=== PATIENT | female | born 1980 | race Caucasian/White ===

== ENCOUNTER 2021-08-27 15:05 | Emergency (ER) | payer OTHER, SELFPAY ==
[2021-08-27] MEDS ORDERED: TETRACAINE HCL 0.5% 4ML OPTH ONE (15:41)
[2021-08-27] MEDS ORDERED: FLUORESCEIN SODIUM 1 MG/WRAP ONE (15:41)
[2021-08-27] MEDS ORDERED: LIDOCAINE JELLY 2%- 5 ML TUBE ONE (15:43)
--- NOTE | 2021-08-27 16:23 | RAD REPORT ---
EXAM DESCRIPTION: CT - Facial Bones W/ Mpr - 08/27/2021 4:11 pm CLINICAL HISTORY: Facial injury status post fall with facial pain COMPARISON: None TECHNIQUE: Computed axial tomography of the face was obtained. Coronal and sagittal reconstruction w as performed. All CT scans are performed using dose optimization technique as appropriate and may include automated exposure control or mA/KV adjustment according to patient size. FINDINGS: A fracture is not seen. A TMJ dislocation is not noted. The globes are intact. Mild chronic sinusitis. IMPRESSION: Negative for a facial fracture.
--- NOTE | 2021-08-27 17:04 | EDPHYS ---
Physician Documentation [facility] Name: Katherin Chin Age: 41 yrs Sex: Female : 1980 Arrival Date: 08/27/2021 Time: 15:07 Bed 15 Private MD: ED Physician Harris Manjarrez HPI: 08/27 15:35 This 41 yrs old Female presents to ER via Ambulatory with complaints of Eye Injury - cp Laceration. 15:35 The patient sustained contusion, to the left eye, caused by direct blow. Onset: The cp symptoms/episode began/occurred today. 15:35 Associated signs and symptoms: Pertinent negatives: dizziness, headache, LOC. cp 15:35 Patient does not utilize any form of vision correction. cp 15:35 Patient reports slip and fall in bathroom causing her to strike left eye against cp counter top. No LOC, no vomiting. 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 - Social history:: Smoking status: Patient reports the use of cigarette tobacco products, smokes one-half pack cigarettes per day. ROS: 15:40 Eyes: Positive for pain, redness, swelling, of the left eye. cp 15:40 Constitutional: Negative for body aches, chills, fever. cp 15:40 Neck: Negative for injury or acute deformity, pain with movement, pain at rest, stiffness. 15:40 Cardiovascular: Negative for chest pain. 15:40 Respiratory: Negative for cough, shortness of breath. 15:40 Abdomen/GI: Negative for vomiting, diarrhea, constipation. 15:40 Neuro: Negative for dizziness, headache, loss of consciousness, numbness, seizure activity, syncope, weakness. 15:40 All other systems are negative. Exam: 15:45 Constitutional: The patient appears in no acute distress, alert, awake, well developed, cp well nourished. 15:45 Head/face: Noted is ecchymosis, that is mild, swelling, that is mild, of the left cp upper and left lower eyelids, tenderness, that is mild, Sinus tenderness, that is mild, is located over the left frontal sinus and left maxillary sinus. 15:45 Eyes: Pupils: equal, round, and reactive to light and accomodation, Extraocular movements: intact throughout, Conjunctiva: contusion noted to medial aspect left conjunctiva. Corneas: abrasion, is not appreciated, foreign body, is not appreciated, a fluorescein strip employed to appreciate the findings, Anterior chamber: normal, no hyphema, Lids and lashes: laceration, that is superficial, of the medial aspect left upper eyelid, Visual calle: are intact, Examination of the other eye reveals no obvious gross abnormality. 15:45 ENT: External ear(s): are unremarkable, Nose: is normal, Mouth: Lips: moist, Oral mucosa: pink and intact, moist, Posterior pharynx: Airway: no evidence of obstruction, patent. 15:45 Neck: C-spine: vertebral tenderness, is not appreciated, crepitus, is not appreciated, ROM/movement: is normal, is supple, without pain, no range of motions limitations, no nuchal rigidity. 15:45 Chest/axilla: Inspection: normal. 15:45 Cardiovascular: Rate: tachycardic, Rhythm: regular. 15:45 Respiratory: the patient does not display signs of respiratory distress, Respirations: normal, no use of accessory muscles, no retractions, labored breathing, is not present. 15:45 Abdomen/GI: Exam negative for discomfort, distension, guarding, Inspection: abdomen appears normal. 15:45 Neuro: Orientation: to person, place \T\ time. Mentation: is normal, Motor: moves all fours, strength is normal, Sensation: is normal. Vital Signs: 15:14 BP 159 / 86; Pulse 106; Resp 18; Pulse Ox 99% on R/A; Weight 56.7 kg (R); Height 5 ft. aj1 2 in. (157.48 cm) (R); Pain 8/10; 15:14 Body Mass Index 22.86 (56.70 kg, 157.48 cm) aj1 Visual Acuity: 16:33 Left Eye Visual acuity 20/25, ; Right Eye Visual acuity 20/25, ; Both Eyes Visual mh5 acuity 20/25; Without Lenses; Laceration: 17:05 Wound Repair of 1cm ( 0.4in ) partial thickness laceration to ineer aspect left upper cp eyelid. Linear shaped.. Distal neuro/vascular/tendon intact. Anesthesia: Topical anesthetic administered with 2% viscous lidocaine. Wound prep: Simple cleansing by me. Skin closed with 2 6-0 Vicryl using interrupted sutures and sterile technique. Dressed with Bacitracin. Patient tolerated well. MDM: 15:28 Patient medically screened. cp 16:00 Differential diagnosis: Corneal abrasion of left eye. orbital fracture, laceration, cp globe rupture. 17:02 Data reviewed: vital signs, nurses notes, radiologic studies, CT scan, and as a result, cp I will discharge patient. 17:03 Counseling: I had a detailed discussion with the patient and/or guardian regarding: the cp historical points, exam findings, and any diagnostic results supporting the discharge/admit diagnosis, radiology results, the need for outpatient follow up, an opthalmologist, to return to the emergency department if symptoms worsen or persist or if there are any questions or concerns that arise at home. 17:03 Response to treatment: the patient's symptoms have markedly improved after treatment, cp and as a result, I will discharge patient. 08/27 15:27 Order name: CT Facial Bones W/O Con; Complete Time: 16:24 cp 08/27 16:24 Interpretation: Report reviewed. 08/27 15:33 Order name: Eye Tray; Complete Time: 15:48 08/27 15:33 Order name: Fluoresene Opth strip; Complete Time: 15:48 08/27 16:22 Order name: Visual Acuity; Complete Time: 16:46 cp Administered Medications: 15:48 Drug: Lidocaine Gel 2 % 1 ea Volume: 15 ml; Route: Mucous Membrane; aj1 17:29 Follow up: Response: No adverse reaction aj1 16:46 Drug: Tetracaine Drops 0.5 % 1 drops Route: Ophthalmic; Site: right eye; aj1 17:29 Follow up: Response: No adverse reaction aj1 17:29 Drug: ERYTHromycin Ointment 1 application Route: Ophthalmic; Site: right eye; aj1 17:29 Follow up: Response: No adverse reaction aj1 Disposition: 17:15 Chart complete. cp Disposition Summary: 08/27/21 17:03 Discharge Ordered Location: Home cp Problem: new cp Symptoms: have improved cp Condition: Stable cp Diagnosis - Laceration without foreign body of left eyelid and periocular area cp - Injury of conjunctiva and corneal abrasion without foreign body, left eye, initial cp encounter Followup: cp - With: Lanny Segal MD - When: 2 - 3 days - Reason: Wound Recheck Discharge Instructions: - Discharge Summary Sheet cp - Corneal Abrasion cp - Facial Laceration cp Forms: - Medication Reconciliation Form cp - Thank You Letter cp - Antibiotic Education cp - Prescription Opioid Use cp Prescriptions: - Cephalexin 500 mg Oral Capsule - take 1 capsule by ORAL route every 8 hours for 10 days; 30 capsule; Refills: 0, cp Product Selection Permitted - Ibuprofen 800 mg Oral Tablet - take 1 tablet by ORAL route every 8 hours As needed take with food; 30 tablet; cp Refills: 0, Product Selection Permitted - Tobrex 0.3 % Ophthalmic ointment - apply 0.5 inch ribbon by OPHTHALMIC route 2-3 times daily for 7 days; 1 tube; cp Refills: 0, Product Selection Permitted Signatures: Dispatcher [employer] Madina Walton RN RN aj1 Gulshan Drew PA PA cp
--- NOTE | 2021-08-27 17:04 | ER ---
Nurse's Notes [facility] Name: Katherin Chin Age: 41 yrs Sex: Female : 1980 Arrival Date: 08/27/2021 Time: 15:07 Bed 15 Private MD: Diagnosis: Laceration without foreign body of left eyelid and periocular area;Injury of conjunctiva and corneal abrasion without foreign body, left eye, initial encounter Presentation: 08/27 15:14 Chief complaint: Patient states: She slipped in her bathroom and hit her right eye on aj1 the counter. Laceration noted to right eyelid. Bruising noted to right eyelid. Coronavirus screen: Vaccine status: Patient reports receiving the 2nd dose of the covid vaccine. Ebola Screen: Patient denies travel to an Ebola-affected area in the 21 days before illness onset. Mechanism of Injury: Fall from standing position. Initial Sepsis Screen: Does the patient meet any 2 criteria? No. Patient's initial sepsis screen is negative. Does the patient have a suspected source of infection? No. Patient's initial sepsis screen is negative. Risk Assessment: Do you want to hurt yourself or someone else? Patient reports no desire to harm self or others. Onset of symptoms was August 27, 2021. 15:14 Method Of Arrival: Ambulatory aj1 15:14 Acuity: ELIDA 4 aj1 17:32 The patient denies any loss of vision. aj1 Triage Assessment: 15:16 General: Appears in no apparent distress. uncomfortable, Behavior is calm, cooperative, aj1 appropriate for age. Pain: Complains of pain in right eye. EENT: Sclera/Cornea are reddened in inner aspect of conjunctiva of left eye. Neuro: Level of Consciousness is awake, alert, obeys commands, Oriented to person, place, time, situation. Cardiovascular: Patient's skin is warm and dry. Respiratory: Airway is patent Respiratory effort is even, unlabored, Respiratory pattern is regular, symmetrical. 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 - Social history:: Smoking status: Patient reports the use of cigarette tobacco products, smokes one-half pack cigarettes per day. Screenin:30 Abuse screen: Denies threats or abuse. Denies injuries from another. Nutritional aj1 screening: No deficits noted. Tuberculosis screening: No symptoms or risk factors identified. Fall Risk None identified. Assessment: 15:30 General: Appears in no apparent distress. uncomfortable, Behavior is calm, cooperative, aj1 appropriate for age. Pain: Complains of pain in right eye. Neuro: Level of Consciousness is awake, alert, obeys commands, Oriented to person, place, time, situation. Cardiovascular: Patient's skin is warm and dry. Respiratory: Airway is patent Respiratory effort is even, unlabored, Respiratory pattern is regular, symmetrical. GI: No signs and/or symptoms were reported involving the gastrointestinal system. : No signs and/or symptoms were reported regarding the genitourinary system. EENT: Eyes Laceration noted to right upper eyelid, bruising noted to right upper eye lid, redness noted to sclera. 16:30 Reassessment: Patient appears in no apparent distress at this time. No changes from aj1 previously documented assessment. Patient and/or family updated on plan of care and expected duration. Pain level reassessed. Patient is alert, oriented x 3, equal unlabored respirations, skin warm/dry/pink. 17:32 Reassessment: Patient appears in no apparent distress at this time. No changes from aj1 previously documented assessment. Patient and/or family updated on plan of care and expected duration. Pain level reassessed. Patient is alert, oriented x 3, equal unlabored respirations, skin warm/dry/pink. Vital Signs: 15:14 BP 159 / 86; Pulse 106; Resp 18; Pulse Ox 99% on R/A; Weight 56.7 kg (R); Height 5 ft. aj1 2 in. (157.48 cm) (R); Pain 8/10; 15:14 Body Mass Index 22.86 (56.70 kg, 157.48 cm) aj1 Visual Acuity: 16:33 Left Eye Visual acuity 20/25, ; Right Eye Visual acuity 20/25, ; Both Eyes Visual mh5 acuity 20/25; Without Lenses; ED Course: 15:07 Patient arrived in ED. ds1 15:14 Chad, Madina, RN is Primary Nurse. aj1 15:16 Triage completed. aj1 15:16 Arm band placed on Patient placed in an exam room. aj1 15:21 Gulshan Drew PA is PHCP. cp 15:21 Harris Manjarrez MD is Attending Physician. cp 15:30 Patient has correct armband on for positive identification. aj1 15:30 No provider procedures requiring assistance completed. aj1 16:11 CT Facial Bones W/O Con In Process Unspecified. EDMA 17:01 Lanny Segal MD is Referral Physician. cp 17:32 Patient did not have IV access during this emergency room visit. aj1 Administered Medications: 15:48 Drug: Lidocaine Gel 2 % 1 ea Volume: 15 ml; Route: Mucous Membrane; aj1 17:29 Follow up: Response: No adverse reaction aj1 16:46 Drug: Tetracaine Drops 0.5 % 1 drops Route: Ophthalmic; Site: right eye; aj1 17:29 Follow up: Response: No adverse reaction aj1 17:29 Drug: ERYTHromycin Ointment 1 application Route: Ophthalmic; Site: right eye; aj1 17:29 Follow up: Response: No adverse reaction aj1 Outcome: 17:03 Discharge ordered by MD. cp 17:32 Discharged to home ambulatory. aj1 17:32 Condition: good 17:32 Discharge instructions given to patient, Instructed on discharge instructions, follow up and referral plans. medication usage, Demonstrated understanding of instructions, follow-up care, medications, Prescriptions given X 3. 17:32 Patient left the ED. aj1 Signatures: Dispatcher [employer] [facility] Madina Bonilla RN RN aj1 Nicki Alexander [facility] Gulshan Drew PA PA Ella Ngo 5
[2021-08-27] MEDS ORDERED: TOBRAMYCIN SULF 0.3% OPTH OINT ONE (17:06)
[2021-08-27 17:37] VITALS: BP 159/86; O2SAT 99
== END 2021-08-27 17:32 | disposition home or self-care (01) ==
LOC: ER 15:05
PROC: 08QPXZZ Repair Left Upper Eyelid, External Approach (ICD-10-PCS; principal; 2021-08-27)
DX: S01.112A Laceration without foreign body of left eyelid and periocular area, initial encounter (principal); S05.02XA Injury of conjunctiva and corneal abrasion without foreign body, left eye, initial encounter; W01.198A Fall on same level from slipping, tripping and stumbling with subsequent striking against other object, initial encounter; F17.210 Nicotine dependence, cigarettes, uncomplicated
CPT/HCPCS: 70486; 76377; 99283

== ENCOUNTER 2022-12-16 22:34 | Inpatient (IN) | payer SELFPAY ==
[2022-12-16] MEDS ORDERED: LORazepam 2 MG/ML VIAL ONE (23:16)
[2022-12-16] MEDS ORDERED: ONDANSETRON 4 MG/2 ML VIAL ONE (23:16)
[2022-12-16] MEDS ORDERED: NALOXONE HCL 2 MG/2 ML VIAL ONE (23:16)
[2022-12-16] MEDS ORDERED: WATER FOR INJ,STERILE 10 ML ONE (23:17)
[2022-12-16] MEDS ORDERED: ZIPRASIDONE MESYLA 20 MG/VIAL IM ONE (23:17)
[2022-12-16] MEDS ORDERED: KETAMINE HCL 500 MG/5 ML VIAL ONE (23:30)
[2022-12-16 23:35] LABS: Absolute Lymphocytes (CBC) 2.7 K/uL (0.7-4.9); Hematocrit 43.9 % (36.0-45.0); Lymphocytes % 19.4 % (15.3-44.8); MCV 88.4 fL (80-100); MPV 9.1 fL (7.6-11.3); RBC Red Blood Cell Count 4.97 M/uL (3.86-4.86)
[2022-12-16] MEDS ORDERED: ETOMIDATE 20 MG/10 ML VIAL IV ONE ×2 (23:37→23:42)
[2022-12-16] MEDS ORDERED: ROCURONIUM 50 MG/5 ML VIAL IV ONE (23:38)
[2022-12-16 23:40] LABS: Protime INR 0.98
[2022-12-16] MEDS ORDERED: propofoL 1,000 MG/100 ML VIAL IV ONE (23:55)
--- NOTE | 2022-12-17 00:11 | EDPHYS ---
Physician Documentation [facility] Name: Katherin Chin Age: 42 yrs Sex: Female : 1980 Arrival Date: 12/16/2022 Time: 22:35 Bed 2 Private MD: ED Physician Sincere Dean HPI: 12/16 22:49 This 42 yrs old Female presents to ER via Wheelchair with complaints of sp4 Breathing Difficulty. 22:49 42-year-old female who has history of drug abuse and opiate addiction sp4 presents with acute overdose of fentanyl. Patient states she took [address] street fentanyl pills within the past hour and has had loss of consciousness at home and was administered Narcan by her boyfriend's mother which has helped. On arrival patient also reported that she has used crack cocaine concurrently with fentanyl pills. Patient states that she also obtains Suboxone on the streets for her opiate addiction. Patient reports that she has nausea and is feeling unwell. On examination patient has episodes of agitation, she periodically screams, exhibits poor cooperation with exam, and has some anxiety and signs of opiate withdrawal such as yawning and persistent movement. HPI is limited secondary to patient's condition.. Historical: - Allergies: 22:46 No Known Allergies; kl - Home Meds: 22:46 None [Active]; kl - PMHx: 22:46 None; kl - PSHx: 22:46 None; kl - Immunization history:: Unknown vaccination history. - Social history:: Patient uses street drugs, cocaine. - Family history:: not pertinent. ROS: 23:55 Unable to obtain ROS due to Patient in severe opiate withdrawals and is not able to sp4 cooperate for review of systems. 12/17 00:10 Constitutional: Full ROS is not available secondary to agitation and withdrawal also sp4 acute confusion Exam: 12/16 23:55 Constitutional: This is a well developed, well nourished patient who is awake, patient sp4 has moderate to severe agitation, persistent movement, diaphoresis, and excess salivation consistent with acute opiate withdrawal, moderate to severe distress Head/Face: Normocephalic, atraumatic. Eyes: Pupils equal round and reactive to light, extra-ocular motions intact. Lids and lashes normal. Conjunctiva and sclera are not injected. Cornea within normal limits. Periorbital areas with no swelling, redness, or edema. Pupils are dilated but reactive ENT: Nares patent. No nasal discharge, no septal abnormalities noted. Tympanic membranes are normal and external auditory canals are clear. Oropharynx with no redness, swelling, or masses, exudates, or evidence of obstruction, uvula midline. Mucous membranes moist. Poor dentition Neck: Trachea midline, no thyromegaly or masses palpated, and no cervical lymphadenopathy. Supple, full range of motion without nuchal rigidity, or vertebral point tenderness. No Meningismus. Chest/axilla: Normal chest wall appearance and motion. Nontender with no deformity. No lesions are appreciated. Poor IV access Cardiovascular: Tachycardia with normal S1 and S2. No gallops, murmurs, or rubs. Normal PMI, no JVD. No pulse deficits. Regular tachycardia Respiratory: Lungs have equal breath sounds bilaterally, clear to auscultation and percussion. No rales, rhonchi or wheezes noted. Tachycardia, tachypnea, increased work of breathing, and diaphoresis Abdomen/GI: Soft, non-tender, with normal bowel sounds. No distension or tympany. No guarding or rebound. No evidence of tenderness throughout. Back: No spinal tenderness. No costovertebral tenderness. Pelvic Exam: Normal external genitalia. 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 Generalized pallor and diaphoresis MS/ Extremity: Pulses equal, no cyanosis. Neurovascular intact. Full, normal range of motion. Neuro: Awake and alert, acute confusion GCS of 14, able to follow basic commands, moderate to severe agitation, there is also poor cooperativeness and exam is difficult , however no focal neurologic deficits detected on exam Psych: Awake, alert, moderate to severe agitation, persistent movement, anxiety, acute opiate withdrawal 23:55 ECG was reviewed by the Attending Physician. sp4 Vital Signs: 22:42 BP 150 / 102; Pulse 93; Resp 20; Temp 100.8(O); Pulse Ox 99% ; Weight 62.5 kg (M); ll3 Height 5 ft. 2 in. (R); 22:42 Body Mass Index 25.20 (62.50 kg, 157.48 cm) ll3 Procedures: 23:55 Intubation: Ventilated with 100% NRB prior to procedure. Intubated Camera assisted sp4 intubation, glide scope intubation using # 4 Sylvia blade with 7.5 mm ETT. was successful on first attempt. Ventilated with Ambu bag. ventilator. Tube secured with ETT blum at center of mouth measured 21 cm at lip. Placement verified by CXR, CO2 detector with (+) color change, auscultating bilateral breath sounds, O2 saturation after procedure was 100 %. Patient tolerated well, Patient intubated for airway protection after she was given ketamine for severe agitation with combative behavior. MDM: 22:52 Patient medically screened. sp4 23:55 Differential diagnosis: Anxiety Reaction CHF exacerbation, Chronic Obstructive sp4 Pulmonary Disease pneumonia, Pneumothorax Psychogenic Substance overdose, opiate overdose, opiate withdrawal, respiratory failure. Data reviewed: vital signs, nurses notes, lab test result(s), cardiac enzymes, CBC, drug level(s), electrolytes, hepatic panel, urinalysis, urine drug screen, UPT: COVID swab, EKG, radiologic studies, plain films. 23:55 Consideration of Admission/Observation Patient was admitted/placed on observation. sp4 Escalation of care including admission/observation considered. Management of patient was discussed with the following: Hospitalist: Will admit to Dr. Phi Benton . Admitting POWER PLANT SUPERVISOR took report. I considered the following discharge prescriptions or medication management in the emergency department Antibiotics: At this time antibiotics are not recommended. ED course: Patient was given IV Narcan 2 mg and manifested with severe agitation including combating behavior, patient was flailing about the bed and to prevent further agitation patient was given intramuscular ketamine 500 IM and then was intubated with RSI for airway protection. Will maintain on IV propofol until psychomotor agitation subsides. Patient was discussed with admitting POWER PLANT SUPERVISOR and will be admitted to ICU and till ICU bed is available patient will be managed in the emergency room. 12/16 22:49 Order name: EKG - Nurse/Tech [facility] 12/16 22:49 Order name: IV Saline Lock [facility] 12/16 22:49 Order name: Labs collected and sent [facility] 12/16 22:49 Order name: Suicide Screening (Reserve) [facility] 12/16 22:49 Order name: Urine Dipstick-Ancillary (obtain specimen) [facility] 12/16 22:49 Order name: Urine Test (obtain specimen) [facility] 12/16 22:49 Order name: EKG; Complete Time: 22:50 [facility] 12/16 22:49 Order name: Acetaminophen sp4 12/16 22:49 Order name: Basic Metabolic Panel sp4 12/16 22:49 Order name: Hepatic Function sp4 12/16 22:49 Order name: Urine Drug Screen sp4 12/16 22:49 Order name: CBC with Diff; Complete Time: 23:46 sp4 12/16 22:49 Order name: PT-INR; Complete Time: 23:46 sp4 12/16 22:49 Order name: Ptt, Activated; Complete Time: 23:46 sp4 12/16 23:53 Order name: Chest Single View XRAY sp4 12/16 23:55 Order name: Dailey sp4 12/16 23:55 Order name: Nasogastric Tube sp4 12/16 23:55 Order name: Urine Test (obtain specimen) sp4 12/16 23:55 Order name: COVID-19 SARS RT PCR sp4 12/16 22:49 Order name: ETOH Level; Complete Time: 00:04 sp4 12/16 22:49 Order name: Salicylate; Complete Time: 00:04 sp4 Administered Medications: No medications were administered Disposition: 23:55 Critical Care:. sp4 Disposition Summary: 12/17/22 00:10 Hospitalization Ordered Hospitalization Status: Inpatient Admission sp4 Provider: Phi Bneton Location: Intensive Care Unit sp4 Condition: Serious sp4 Problem: new sp4 Symptoms: are unchanged sp4 Bed/Room Type: Standard sp4 Room Assignment: sp4 Diagnosis - Opioid use, unspecified with withdrawal sp4 - Agitation requiring sedation protocol, combative behavior, acute opiate withdrawal, sp4 leukocytosis, acute respiratory failure Forms: - Medication Reconciliation Form sp4 - SBAR form sp4 Critical care time excluding procedures: 23:55 Critical care time: Bedside Care: 36 minutes, Consultation: 10 minutes, Family sp4 Intervention: 12 minutes. Total time: 58 minutes Signatures: Dispatcher [employer] Montse Dash RN Tucker Barr FNP-Vinny [id number] Melodie Martin RN RN ll3 Sincere Dean MD MD sp4
--- NOTE | 2022-12-17 00:11 | ER ---
Nurse's Notes [facility] Name: Katherin Chin Age: 42 yrs Sex: Female : 1980 Arrival Date: 12/16/2022 Time: 22:35 Bed 2 Private MD: Diagnosis: Opioid use, unspecified with withdrawal;Agitation requiring sedation protocol, combative behavior, acute opiate withdrawal, leukocytosis, acute respiratory failure Presentation: 12/16 22:42 Chief complaint: Patient states: difficulty breathing after smoking crack taking a kl percocet then was given narcan. Coronavirus screen: Vaccine status: Patient reports being unvaccinated. Ebola Screen: Patient negative for fever greater than or equal to 101.5 degrees Fahrenheit, and additional compatible Ebola Virus Disease symptoms. Initial Sepsis Screen: Does the patient meet any 2 criteria? No. Patient's initial sepsis screen is negative. Does the patient have a suspected source of infection? No. Patient's initial sepsis screen is negative. Risk Assessment: Do you want to hurt yourself or someone else? Patient reports no desire to harm self or others. 22:42 Method Of Arrival: Wheelchair 22:42 Acuity: ELIDA 3 kl Triage Assessment: 22:46 General: Appears distressed, unkempt, Behavior is restless. Respiratory: Reports kl shortness of breath at rest Onset: The symptoms/episode began/occurred just prior to arrival, the patient has mild shortness of breath. Historical: - Allergies: 22:46 No Known Allergies; kl - Home Meds: 22:46 None [Active]; kl - PMHx: 22:46 None; kl - PSHx: 22:46 None; kl - Immunization history:: Unknown vaccination history. - Social history:: Patient uses street drugs, cocaine. - Family history:: not pertinent. Vital Signs: 22:42 BP 150 / 102; Pulse 93; Resp 20; Temp 100.8(O); Pulse Ox 99% ; Weight 62.5 kg (M); ll3 Height 5 ft. 2 in. (R); 22:42 Body Mass Index 25.20 (62.50 kg, 157.48 cm) ll3 ED Course: 22:35 Patient arrived in ED. [facility] 22:46 Triage completed. 22:47 Sincere Dean MD is Attending Physician. sp4 22:48 Arm band placed on Patient placed in an exam room, on a stretcher, on cardiac cath lab manager, ll3 on pulse oximetry. 12/17 00:05 Jose Casas, RN is Primary Nurse. as6 00:09 Phi Benton MD is Hospitalizing Provider. sp4 Administered Medications: No medications were administered Outcome: 00:10 Decision to Hospitalize by Provider. sp4 Signatures: Montse Page RN RN Kiki Brennan Jose Casas, ROSMERY RN as6 Melodie Martin RN RN ll3 Sincere Dean MD MD sp4 Corrections: (The following items were deleted from the chart) 12/16 22:49 22:42 BP 150 / 102; Pulse 93bpm; Resp 20bpm; Pulse Ox 99%; kl ll3
[2022-12-17 00:18] LABS: Urine Blood Trace-intact (Negative); Urine Glucose Negative (Negative); Urine Protein Negative (Negative)
[2022-12-17 00:40] LABS: ALT/SGPT 26 U/L (13-56); AST/SGOT 15 U/L (15-37); Albumin 4.5 g/dL (3.4-5.0); Alkaline Phosphatase 71 U/L (45-117); BUN Blood Urea Nitrogen 12 mg/dL (7-18); Bicarbonate 27 mEq/L (21-32); Bilirubin Total 0.3 mg/dL (0.2-1.0); Glomerular Filtration Rate 101 ml/min (=/>90); Glucose Level 73 mg/dL (74-106); Potassium 3.6 mEq/L (3.5-5.1); Protein, Total 8.7 g/dL (6.4-8.2); Sodium Level 134 mEq/L (136-145)
[2022-12-17 00:41] LABS: Bilirubin Direct < 0.1 mg/dL (0-0.2)
[2022-12-17] MEDS ORDERED: D5 0.45 NS 1,000 ML IV ONE (00:41)
[2022-12-17] MEDS ORDERED: NA CHLORIDE 0.9% 1,000 ML ONE (00:41)
[2022-12-17] MEDS ORDERED: CEFTRIAXONE 1000 MG/VIAL ONE ×2 (00:52→08:10)
[2022-12-17] MEDS ORDERED: NA CHLORIDE 0.9% 50 ML ONE ×2 (00:52→08:11)
[2022-12-17] MEDS ORDERED: MIDAZOLAM HCL 2 MG/2 ML INJ ONE ×5 (01:30→12:12)
[2022-12-17 01:38] LABS: Barbiturates NEGATIVE (NEGATIVE); Benzodiazepines NEGATIVE (NEGATIVE); Cocaine POSITIVE (NEGATIVE); METHAMPHETAM NEGATIVE (NEGATIVE); Methadone NEGATIVE (NEGATIVE); Opiates NEGATIVE (NEGATIVE); Phencyclidine NEGATIVE (NEGATIVE); THC Cannibis NEGATIVE (NEGATIVE)
[2022-12-17] MEDS: MIDAZOLAM HCL 2 MG/2 ML INJ IV PRN ×8 (01:45→23:14)
--- NOTE | 2022-12-17 02:10 | P.HP ---
Certification for Inpatient Patient admitted to: Inpatient With expected LOS: >2 Midnights Patient will require the following post-hospital care: None Practitioner: I am a practitioner with admitting privileges, knowledge of patient current condition, hospital course, and medical plan of care. Services: Services provided to patient in accordance with Admission requirements found in Title 42 Section 412.3 of the Code of Federal Regulations <Tucker Jimenez Anny Preciado - Last Filed: 12/17/22 02:02> Patient History Date of Service: 12/17/22 Reason for admission: Excited delirium, polysubstance abuse History of Present Illness: 42-year-old otherwise healthy female presented to the emergency department with chief complaint of breathing difficulty. She has a history of opiate addiction, drug abuse and apparently had an acute overdose of fentanyl. Per ER report patient took 3 street fentanyl pills prior to arrival to the hospital and lost consciousness at home, Narcan was administered by her boyfriend's mother which helped. Upon arrival patient also reported that she used crack cocaine with the other drugs. She also reports that she gets Suboxone off the streets. Her who is now at bedside reports that about 16 years ago she became addicted to opiates and was prescribed Suboxone until to 3 months ago when they lost her insurance and since then has been buying drugs off the street. During her stay in the emergency department patient became significantly agitated becoming a risk to herself and others, she was screaming, flailing, combative with staff she was given Ativan, Geodon, IM ketamine and subsequently intubated for airway protection. Her labs were significant for leukocytosis with a white blood cell count of 13.8 urinalysis nitrate positive no leuk esterase noted UDS positive for cocaine, has been reports patient is a smoker but does not drink alcohol. Patient will be admitted to the ICU for further evaluation and management. - Past Medical/Surgical History -: Opioid addiction/abuse -: Tobacco abuse -: Polysubstance abuse -: x2 -: Appendectomy Psychosocial/ Personal History: Patient lives at home with her - Family History Family History: Reviewed- Non-Contributory - Social History Smoking Status: Current every day smoker Alcohol use: No CD- Drugs: Yes Place of Residence: Home <Tucker Jimenez - Last Filed: 12/17/22 02:02> Date of Service: 12/17/22 <Phi Benton - Last Filed: 12/17/22 22:20> Allergies No Known Allergies Allergy (Unverified 03/15/12 14:06) Review of Systems is unable to be obtained <Tucker Jimenez - Last Filed: 12/17/22 02:02> Physical Examination - Physical Exam General: Unresponsive, Other (Sedated, on ventilator) HEENT: Atraumatic Neck: Supple, 2+ carotid pulse no bruit Respiratory: Clear to auscultation bilaterally, Normal air movement Cardiovascular: No edema, Normal S1 S2 Capillary refill: <2 Seconds Gastrointestinal: Normal bowel sounds Musculoskeletal: No erythema, No tenderness Integumentary: No tenderness/swelling, No erythema, No warmth Neurological: Other (Sedated, on ventilator) - Studies Laboratory Data (last 24 hrs) 12/16/22 23:20: PT 10.8, INR 0.98, APTT 32.3 12/16/22 23:20: WBC 13.80 H, Hgb 15.2 H, Hct 43.9, Plt Count 408 H 12/16/22 23:20: Sodium 134 L, Potassium 3.6, BUN 12, Creatinine 0.75, Glucose 73 L, Total Bilirubin 0.3, AST 15, ALT 26, Alkaline Phosphatase 71 <Tucker Jimenez - Last Filed: 12/17/22 02:02> - Studies Laboratory Data (last 24 hrs) 12/16/22 23:20: PT 10.8, INR 0.98, APTT 32.3 12/16/22 23:20: WBC 13.80 H, Hgb 15.2 H, Hct 43.9, Plt Count 408 H 12/16/22 23:20: Sodium 134 L, Potassium 3.6, BUN 12, Creatinine 0.75, Glucose 73 L, Total Bilirubin 0.3, AST 15, ALT 26, Alkaline Phosphatase 71 <Phi Benton - Last Filed: 12/17/22 22:20> Assessment and Plan - Plan Assessment: Excited delirium secondary to polysubstance abuse/opioid use disorder with overdose/withdrawal SIRS criteria, leukocytosis Tobacco use disorder Plan: Excited delirium secondary to polysubstance abuse/opioid use disorder with overdose/withdrawal Patient reportedly overdosed on opiates at home, was given Narcan by family. Also reportedly was using cocaine. She was extremely agitated/aggressive/combative in the emergency department and required sedation with Ativan, Geodon, finally IM ketamine. She was subsequently intubated for airway protection and has been on propofol infusion since then. Her Bertrand #[phone] reports that she has been dependent on opiates for many years, was previously on Suboxone until her insurance ran out to 3 months ago and has since been supplementing with what ever she could find on the street. Pulmonology consulted continue with vent management, sedation, wean off of sedation/vent as tolerated. SIRS criteria, leukocytosis No source of infection identified at this time, urine is nitrate positive but without leuk esterase. She was given Rocephin which we will continue for the time being. Continue to monitor for source of infection although I believe her SIRS criteria are reactive from polysubstance abuse, excited delirium, dehydration. Tobacco use disorder We will provide NicoDerm patch. DVT PPX: Lovenox Code status: Full Discharge Plan: Home Plan to discharge in: Greater than 2 days - Advance Directives Does patient have a Living Will: No Does patient have a Durable POA for Healthcare: No - Code Status/Comfort Care Code Status Assessed: Yes (Full code) Critical Care: No Time Spent Managing Pts Care (In Minutes): 70 <Tucker Jimenez - Last Filed: 12/17/22 02:02> - Plan Patient seen and examined on rounds in the AM. s/p intubation, on propofol, still agitated Dr. Song consulted, would benefit from precedex drip opioid dependence, s/p narcan monitor/treat for withdrawal continue antibiotic family updated at bedside <Phi Benton - Last Filed: 12/17/22 22:20>
[2022-12-17] MEDS: D5.45NS W/KCL 20MEQ 1,000 ML IV SCH ×3 (03:28→23:15)
[2022-12-17] MEDS ORDERED: D5.45NS W/KCL 20MEQ 1,000 ML IV ONE ×2 (03:56→14:05)
[2022-12-17] MEDS ORDERED: propofoL 1,000 MG/100 ML VIAL IV ONE ×3 (03:56→14:55)
[2022-12-17] MEDS ORDERED: HALOPERIDOL LACT 5 MG/ML INJ ONE ×2 (05:16→09:53)
[2022-12-17 05:24] LABS: Absolute Lymphocytes (CBC) 2.4 K/uL (0.7-4.9); Hematocrit 43.6 % (36.0-45.0); MCV 89.6 fL (80-100); RBC Red Blood Cell Count 4.87 M/uL (3.86-4.86)
[2022-12-17] MEDS: HALOPERIDOL LACT 5 MG/ML INJ IV PRN ×4 (05:48→23:28)
[2022-12-17 05:49] LABS: Thyroid Stimulating Hormone 0.776 uIU/mL (0.358-3.740)
[2022-12-17] MEDS: FENTANYL CITR 100 MCG/2 ML IV PRN ×2 (05:58→16:34)
[2022-12-17] MEDS: ONDANSETRON 4 MG/2 ML VIAL IV PRN ×2 (05:58→12:22)
[2022-12-17] MEDS ORDERED: FENTANYL CITR 100 MCG/2 ML ONE (06:01)
[2022-12-17] MEDS ORDERED: ONDANSETRON 4 MG/2 ML VIAL ONE ×2 (06:01→12:13)
[2022-12-17 06:14] VITALS: BMI 25.2
[2022-12-17] MEDS: propofoL 1,000 MG/100 ML VIAL IV PRN ×2 (07:00→13:40)
--- NOTE | 2022-12-17 07:07 | P.PN ---
Date of Service: 12/18/22 Subjective: alert this AM; follows commands remains intubated on precedex ROS: unable to fully obtain due to intubation Physical Exam: GEN: alert, coughing, follows commands HEENT: Normal conjunctiva, sclera anicteric CV: Regular rate and rhythm, no edema Pulm: Nonlabored respirations on vent ABD: Soft, nontender, nondistended Integumentary: No rashes Neuro: following commands Problem List: Excited delirium secondary to polysubstance abuse/opioid use disorder with overdose/withdrawal SIRS criteria, leukocytosis Tobacco use disorder pt reportedly overdosed on opiates at home, was given Narcan by family; also reportedly on cocaine Extremely aggressive in ED, sedated with ativan, Geodon, finally IM ketamine (Bertrand [phone]) reports pt has been dependant on opiates for years. previously on suboxone until insurance ran out ~3 months ago supplementing her with anything he can find on the streets since Intubated 12/17 in ED and on propofol plan for extubation 12/18 if BP allows, consider starting clonidine Pulmonology consulted - continued with sedation Chest x-ray 12/18 - right basilar opacities partially resolved Urine is nitrate positive but without leuk esterase Continue Rocephin SIRS criteria possibly reactive from polysubstance abuse, excited delirium, dehydration pt given NicoDerm patch VTE: Lovenox Code: Full Dispo: Home, 1-2 days
[2022-12-17] MEDS ORDERED: ENOXAPARIN 40 MG/0.4 ML SQ ONE (08:11)
[2022-12-17] MEDS ORDERED: FAMOTIDINE 20 MG/2 ML VIAL IV ONE (08:11)
[2022-12-17] MEDS: FAMOTIDINE 20 MG/2 ML VIAL IV SCH ×2 (09:00→20:41)
[2022-12-17] MEDS: ENOXAPARIN 40 MG/0.4 ML SQ SCH (09:00)
[2022-12-17] MEDS: CEFTRIAXONE 1,000 MG in NA CHLORIDE 0.9% 50 ML IVPB SCH (09:00)
--- NOTE | 2022-12-17 09:52 | P.CNS ---
Date of Consult: 12/17/22 Reason for Consult: Respiratory failure Chief Complaint: Respiratory failure History of Present Illness: Patient is 42 years of age presented to the emergency room with shortness of breath history of drug abuse she may have overdosed on fentanyl and injected for quite some time currently on a ventilator stable he was intubated Allergies No Known Allergies Allergy (Unverified 03/15/12 14:06) - Past Medical/Surgical History Diabetic: No -: Opioid addiction/abuse -: Tobacco abuse -: Polysubstance abuse -: x2 -: Appendectomy Psychosocial/ Personal History: Patient lives at home with her - Social History Alcohol use: No CD- Drugs: Yes Place of Residence: Home Review of Systems is unable to be obtained Physical Examination Temp Pulse Resp BP Pulse Ox 97.9 F 88 16 125/81 100 12/17/22 07:52 12/17/22 09:44 12/17/22 09:44 12/17/22 09:44 12/17/22 09:44 General: Unresponsive Respiratory: Friction rub Cardiovascular: Regular rate/rhythm, Normal S1 S2 Gastrointestinal: Normal bowel sounds, Soft and benign Laboratory Data (last 24 hrs) 12/16/22 23:20: PT 10.8, INR 0.98, APTT 32.3 12/16/22 23:20: WBC 13.80 H, Hgb 15.2 H, Hct 43.9, Plt Count 408 H 12/16/22 23:20: Sodium 134 L, Potassium 3.6, BUN 12, Creatinine 0.75, Glucose 73 L, Total Bilirubin 0.3, AST 15, ALT 26, Alkaline Phosphatase 71 - Problems (1) Respiratory failure Current Visit: Yes Status: Acute Plan: Patient is 42 years of age history of drug abuse admitted with possible overdose doing better chest x-ray is clear vital signs stable chemistries normal white count is mildly elevated she is only 35% oxygen we will plan to wean her off and extubate her probably by this afternoon or evening positive for cocaine
[2022-12-17] MEDS ORDERED: DEXMEDETOMIDINE HCL 200 MCG in NA CHLORIDE 0.9% 98 ML IV SCH (16:00)
[2022-12-17] MEDS: DEXMEDETOMIDINE HCL 1,000 MCG in NA CHLORIDE 0.9% 490 ML IV SCH (16:25)
--- NOTE | 2022-12-17 17:04 | RAD REPORT ---
EXAM DESCRIPTION: RAD - Chest Single View - 12/17/2022 4:53 pm CLINICAL HISTORY: Coughing Chest pain. COMPARISON: Chest Single View dated 12/17/2022 FINDINGS: Portable technique limits examination quality. Mild linear opacities in the right lung base most likely subsegmental atelectasis. Tip of the endotra cheal tube is at the level of the aortic arch. Enteric tube descends into the upper abdomen, tip not included on the radiograph.
--- NOTE | 2022-12-17 19:10 | RAD REPORT ---
EXAM DESCRIPTION: RAD - Chest Single View - 12/17/2022 12:25 am CLINICAL HISTORY: NG tube placement. Intubation.. TECHNIQUE: AP portable chest x-ray on 12/17/2022, at 00: 19. COMPARISON: None. FINDINGS: Heart: Normal size and configuration. Mediastinal Structures: Normal and midline.. An endotracheal tube is identified distal tip 4 cm cephalad to the jazmyn. An NG tube is identified extending into the stomach. The distal tip is not included on the exam. Lung Leos: No active disease. Pulmonary Vascularity: Normal. Pleural Space: No active disease. Bony Structures: The bony structures appear intact.. IMPRESSION: 1. Successful placement of endotracheal tube and OG tube. Electronically signed by: Kristopher Pfeiffer MD 12/17/2022 12:35 AM CDT Due to temporary technical issues with the PACS/Fluency reporting system, reports are being signed by the in house radiologists without review as a courtesy to insure prompt reporting. The interpreting radiologist is fully responsible for the content of the report.
--- NOTE | 2022-12-17 19:15 | RAD REPORT ---
EXAM DESCRIPTION: CT - Head Brain Wo Cont - 12/17/2022 6:46 am CLINICAL HISTORY: Altered mental status. TECHNIQUE: 5 mm axial images of the intracranial structures were obtained without intravenous contra st. Coronal and sagittal reformatted images were obtained. COMPARISON: None.. DOSE OPTIMIZATION: This facility uses dose optimization techniques as appropriate to perform exams, including at least one of the following techniques: 1. Automated exposure control. 2. Adjustment of the mA and/or kV according to patient size (this includes techniques or standardized protocols for targeted exams where dose is matched to the indication/reason for exam, i.e. extremiti es or head). 3. Use of iterative reconstructive technique. FINDINGS: No abnormal acute extracerebral fluid collections are demonstrated. The cortical sulci, ventricles, and cisterns are within normal limits. There are no areas of altered attenuation to suggest acute hemorrhage, acute infarct, or mass lesio n. The visualized portions of the paranasal sinuses and mastoid air cells are remarkable for moderately severe mucosal thickening within the ethmoid sinuses and left maxillary sinus. There is mild mucosal thickening within the right maxillary sinus.. IMPRESSION: 1. No acute intracranial abnormalities. 2. Paranasal sinusitis. Electronically signed by: Kristopher Pfeiffer MD 12/17/2022 1:37 AM CDT Due to temporary technical issues with the PACS/Fluency reporting system, reports are being signed by the in house radiologists without review as a courtesy to insure prompt reporting. The interpreting radiologist is fully responsible for the content of the report.
[2022-12-17] MEDS ORDERED: NA CHLORIDE 0.9% 500 ML IV ONE (20:28)
[2022-12-17] MEDS: HYDROMORPHONE HCL 2 MG/ML inj IV PRN (21:58)
[2022-12-18] MEDS: HYDROMORPHONE HCL 2 MG/ML inj IV PRN ×2 (01:38→06:26)
[2022-12-18] MEDS: MIDAZOLAM HCL 2 MG/2 ML INJ IV PRN ×2 (02:30→05:00)
[2022-12-18] MEDS: HALOPERIDOL LACT 5 MG/ML INJ IV PRN (03:51)
[2022-12-18 05:49] LABS: Absolute Lymphocytes (CBC) 2.2 K/uL (0.7-4.9); Lymphocytes % 14.8 % (15.3-44.8); MCV 90.3 fL (80-100); MPV 8.9 fL (7.6-11.3)
[2022-12-18] MEDS: DEXMEDETOMIDINE HCL 1,000 MCG in NA CHLORIDE 0.9% 490 ML IV SCH (05:54)
[2022-12-18 06:08] LABS: Bilirubin Total 0.5 mg/dL (0.2-1.0); Potassium 3.9 mEq/L (3.5-5.1); Protein, Total 6.2 g/dL (6.4-8.2)
[2022-12-18] MEDS: D5.45NS W/KCL 20MEQ 1,000 ML IV SCH ×3 (09:28→23:02)
--- NOTE | 2022-12-18 09:34 | RAD REPORT ---
EXAM DESCRIPTION: Alberto Single View12/18/2022 6:53 am CLINICAL HISTORY: Ventilation. Opioid withdrawal COMPARISON: December 17, 2022 FINDINGS: Right basilar opacities have partially resolved. Remainder lungs appear clear Heart is normal size Nasogastric and endotracheal tubes in good position
[2022-12-18] MEDS: CEFTRIAXONE 1,000 MG in NA CHLORIDE 0.9% 50 ML IVPB SCH (09:44)
[2022-12-18] MEDS: FAMOTIDINE 20 MG/2 ML VIAL IV SCH ×2 (09:45→20:02)
[2022-12-18] MEDS: ENOXAPARIN 40 MG/0.4 ML SQ SCH (09:45)
[2022-12-18] MEDS: HYDROMORPHONE HCL 0.5 MG/0.5 ML INJ IV PRN ×3 (14:32→23:59)
[2022-12-18] MEDS ORDERED: LORAZEPAM 1 MG TABLET PO ONE (16:46)
[2022-12-18] MEDS: cloNIDine HCL 0.1 MG TAB PO PRN (20:02)
[2022-12-18] MEDS: BENZONATATE 100 MG CAP PO PRN (23:17)
[2022-12-18] MEDS ORDERED: BENZONATATE 100 MG CAP PO ONE (23:21)
[2022-12-19] MEDS: cloNIDine HCL 0.1 MG TAB PO PRN (03:52)
[2022-12-19] MEDS: HYDROMORPHONE HCL 0.5 MG/0.5 ML INJ IV PRN (04:22)
[2022-12-19 05:34] LABS: Absolute Lymphocytes (CBC) 2.7 K/uL (0.7-4.9); Hematocrit 37.7 % (36.0-45.0); MPV 9.7 fL (7.6-11.3); RBC Red Blood Cell Count 4.18 M/uL (3.86-4.86)
[2022-12-19 05:40] LABS: Potassium 3.4 mEq/L (3.5-5.1)
[2022-12-19] MEDS: BENZONATATE 100 MG CAP PO PRN ×2 (06:07→22:10)
[2022-12-19] MEDS ORDERED: clonazePAM 0.5 MG TAB PO PRN (06:28)
--- NOTE | 2022-12-19 07:02 | P.PN ---
Date of Service: 12/19/22 Subjective: extubated yesterday no acute events overnight having some mild withdrawal symptoms - anxious, sweating, mild agitation states she has a spot at a detox center tomorrow no worsening symptoms minimal/no appetite; Drinking well ROS: as noted above, otherwise negative Physical Exam: GEN: alert, coughing HEENT: Normal conjunctiva, sclera anicteric CV: Regular rate and rhythm, no edema Pulm: Nonlabored respirations on room air, mild cough ABD: Soft, nontender, nondistended Integumentary: No rashes Neuro: anxious, normal speech, moves all extremities Problem List: Excited delirium secondary to polysubstance abuse/opioid use disorder with overdose and subsequent iatrogenic withdrawal after narcan SIRS criteria, leukocytosis Nicotine use disorder pt reportedly overdosed on opiates at home, was given Narcan by family; also reportedly on cocaine Extremely aggressive in ED, sedated with ativan, Geodon, finally IM ketamine (Bertrand [phone]) reports pt has been dependant on opiates for years. previously on suboxone until insurance ran out ~3 months ago supplementing her with anything he can find on the streets since s/p behavioral intubation 12/17 in ED and on propofol (later switched to precedex) extubated 12/18 AM, drips weaned off Pulmonology consulted - ordered dilauded dialudid dc'd 12/19 start clonidine, klonopin, 12/19 titrate as needed, COWS protocol Chest x-ray 12/18 - right basilar opacities partially resolved, mild cough no evidence of infection, dc empiric rocephin 12/19 pt given NicoDerm patch VTE: Lovenox Code: Full Dispo: patient states she will got to detox facility Tuesday continue ICU level of care, received dialudid overnight, withdrawal may worsen today
[2022-12-19] MEDS: ENOXAPARIN 40 MG/0.4 ML SQ SCH (07:59)
[2022-12-19] MEDS: FAMOTIDINE 20 MG/2 ML VIAL IV SCH ×2 (07:59→20:15)
[2022-12-19] MEDS ORDERED: ACETAMINOPHEN 500 MG TAB ONE (08:20)
[2022-12-19 08:49] VITALS: O2SAT 100
[2022-12-19] MEDS ORDERED: POTASSIUM CL SA 10 MEQ TAB PO ONE (09:00)
[2022-12-19] MEDS: cloNIDine HCL 0.1 MG TAB PO SCH ×3 (09:45→21:20)
[2022-12-19] MEDS ORDERED: cloNIDine HCL 0.1 MG TAB PO ONE (11:12)
[2022-12-19] MEDS ORDERED: LORazepam 2 MG/ML VIAL IV ONE (11:12)
[2022-12-19] MEDS ORDERED: PHENOL 1.4% ORAL SPRAY 180ML MM PRN (12:37)
[2022-12-19] MEDS: clonazePAM 1 MG TAB PO PRN ×2 (13:55→20:15)
[2022-12-19] MEDS: HYDROCODONE/APAP 5/325 MG TAB PO PRN ×2 (15:57→23:31)
[2022-12-19] MEDS: ACETAMINOPHEN 500 MG TAB PO PRN (21:20)
[2022-12-20] MEDS: clonazePAM 1 MG TAB PO PRN (01:32)
[2022-12-20] MEDS: cloNIDine HCL 0.1 MG TAB PO SCH ×2 (03:21→09:16)
[2022-12-20 04:52] LABS: Absolute Lymphocytes (CBC) 2.7 K/uL (0.7-4.9); Lymphocytes % 23.7 % (15.3-44.8); MCV 89.5 fL (80-100); MPV 9.5 fL (7.6-11.3); RBC Red Blood Cell Count 4.25 M/uL (3.86-4.86)
[2022-12-20 05:05] LABS: Potassium 3.5 mEq/L (3.5-5.1)
[2022-12-20] MEDS: BENZONATATE 100 MG CAP PO PRN (06:07)
[2022-12-20] MEDS: ACETAMINOPHEN 500 MG TAB PO PRN (06:34)
--- NOTE | 2022-12-20 07:22 | P.DS ---
Admission Date: 12/17/22 Discharge Date: 12/20/22 Reason for Admission: Respiratory failure Consultations: Pulmonology - Dr. Song Brief History of Present Illness: 42yo F, PMH: Opiod addiction/abuse, tobacco abuse, polysubstance abuse, c- section x2, appendectomy Presented to the emergency department with chief complaint of breathing difficulty. Per ER report patient took 3 street fentanyl pills prior to arrival to the hospital and lost consciousness at home, Narcan was administered by her boyfriend's mother which helped. Upon arrival patient also reported that she used crack cocaine with the other drugs. She also reports that she gets Suboxon e off the streets. Her who is now at bedside reports that about 16 years ago she became addicted to opiates and was prescribed Suboxone until to 3 months ago when they lost her insurance and since then has been buying drugs off the street. During her stay in the emergency department patient became significantly agitated becoming a risk to herself and others, she was screaming, flailing, combative with staff she was given Ativan, Geodon, IM ketamine and subsequently intubated for airway protection. Her labs were significant for leukocytosis with a white blood cell count of 13.8 urinalysis nitrate positive no leuk esterase noted UDS positive for cocaine, has been reports patient is a smoker but does not drink alcohol. Patient will be admitted to the ICU for further evaluation and management. Hospital Course: Problem List: Excited delirium secondary to polysubstance abuse/opioid dependence with overdose and subsequent iatrogenic withdrawal after narcan Nicotine dependence Patient was brought to ED after receiving Narcan due to overdose. Patient took 3 pills and was noted to be unresponsive and reportedly turning blue. Narcan administered at home. Patient went into immediate withdrawal and presented to ED, where she was agitated and aggressive, not allowing care to be administered. She was subsequently sedated and intubated. She was extubated the following day. She had mild-moderate withdrawal symptoms and was treated with clonidine and klonopin with some improvement. She was deemed stable for discharge to medical detox facility which family set up. On presentation, she was noted to have leukocytosis which improved, and felt to be reactive. No evidence of infection. Initial chest x-ray noted right basilar opacities which partially resolved on repeat x-ray the following day. She remained afebrile. Physical Exam: GEN: alert, coughing HEENT: Normal conjunctiva, sclera anicteric CV: Regular rate and rhythm, no edema Pulm: Nonlabored respirations on room air, mild cough ABD: Soft, nontender, nondistended Integumentary: No rashes Neuro: anxious, normal speech, moves all extremities Vital Signs/Physical Exam: Temp Pulse Resp BP Pulse Ox 98 F 77 20 156/99 H 100 12/20/22 04:00 12/20/22 04:00 12/20/22 04:00 12/20/22 04:00 12/19/22 15:57 Laboratory Data at Discharge: WBC 11.50 thou/uL (4.3-10.9) H 12/20/22 04:16 Hgb 12.9 g/dL (12.0-15.0) 12/20/22 04:16 Hct 38.0 % (36.0-45.0) 12/20/22 04:16 Plt Count 300 thou/uL (152-406) 12/20/22 04:16 PT 10.8 SECONDS (9.5-12.5) 12/16/22 23:20 INR 0.98 12/16/22 23:20 APTT 32.3 SECONDS (24.3-36.9) 12/16/22 23:20 Sodium 138 mEq/L (136-145) 12/20/22 04:16 Potassium 3.5 mEq/L (3.5-5.1) 12/20/22 04:16 BUN 7 mg/dL (7-18) 12/20/22 04:16 Creatinine 0.53 mg/dL (0.55-1.02) L 12/20/22 04:16 Glucose 122 mg/dL (74-106) H 12/20/22 04:16 Magnesium 2.0 mg/dL (1.6-2.4) 12/18/22 05:36 Total Bilirubin 0.5 mg/dL (0.2-1.0) 12/18/22 05:36 AST 16 U/L (15-37) 12/18/22 05:36 ALT 19 U/L (13-56) 12/18/22 05:36 Alkaline Phosphatase 48 U/L (45-117) 12/18/22 05:36 Home Medications: Buprenorphine HCl/Naloxone HCl [Buprenorphine-Nalox 8-2Mg Film] 8 mg SL BID 12/18/22 Physician Discharge Instructions: Problem List: Excited delirium secondary to polysubstance abuse/opioid dependence with overdose and subsequent iatrogenic withdrawal after narcan Nicotine dependence Patient was brought to ED after receiving Narcan due to overdose. Patient took 3 pills and was noted to be unresponsive and reportedly turning blue. Narcan administered at home. Patient went into immediate withdrawal and presented to ED, where she was agitated and aggressive, not allowing care to be administered. She was subsequently sedated and intubated. She was extubated the following day. She had mild-moderate withdrawal symptoms and was treated with clonidine and klonopin with some improvement. She was deemed stable for discharge to medical detox facility which family set up. On presentation, she was noted to have leukocytosis which improved, and felt to be reactive. No evidence of infection. Initial chest x-ray noted right basilar opacities which partially resolved on repeat x-ray the following day. She remained afebrile. Time spent managing pt's care (in minutes): 45
[2022-12-20] MEDS: FAMOTIDINE 20 MG/2 ML VIAL IV SCH (07:32)
[2022-12-20] MEDS: ENOXAPARIN 40 MG/0.4 ML SQ SCH (07:32)
[2022-12-20 09:17] VITALS: BP 128/66
[2022-12-20 10:15] VITALS: TEMP 97.6
--- NOTE | 2022-12-20 17:45 | EKG ---
Test Date: 2022-12-17 Test Time: 00:15:14 Physician Allergist Immunologist: CAMILLE MEASUREMENT RESULTS: Intervals: Rate: 104 WV: 144 QRSD: 84 QT: 370 QTc: 486 [place]: P: 64 WV: 144 QRS: 95 T: 37 INTERPRETIVE STATEMENTS: Sinus tachycardia Possible Left atrial enlargement Rightward axis Borderline ECG No previous ECG available for comparison Electronically Signed On 12-20-22 17:37:47 CDT by Demarco Boyd
== END 2022-12-20 09:45 | disposition home or self-care (01) | DRG 917 ==
LOC: ER 22:34 → ERHOLD 12-17 01:32 → 3RD-ICU 12-17 14:48
PROVIDERS: ADMIT Hospitalist; ATTEND Hospitalist
PROC: 5A1945Z Respiratory Ventilation, 24-96 Consecutive Hours (ICD-10-PCS; principal; 2022-12-17)
PROC: 0BH17EZ Insertion of Endotracheal Airway into Trachea, Via Natural or Artificial Opening (ICD-10-PCS; 2022-12-17)
DX: T40.411A Poisoning by fentanyl or fentanyl analogs, accidental (unintentional), initial encounter (principal); J96.00 Acute respiratory failure, unspecified whether with hypoxia or hypercapnia; R65.10 Systemic inflammatory response syndrome (SIRS) of non-infectious origin without acute organ dysfunction; F11.23 Opioid dependence with withdrawal; F05 Delirium due to known physiological condition; E86.0 Dehydration; F41.9 Anxiety disorder, unspecified; F17.200 Nicotine dependence, unspecified, uncomplicated; Z78.1 Physical restraint status; Z20.822 Contact with and (suspected) exposure to COVID-19
CPT/HCPCS: 31500; 36415; 51702; 70450; 71045; 80048; 80053; 80076; 80307; 81003; 81025; 83735; 84439; 84443; 85025; 85610; 85730; 93005; 94002; 94003; 96372; 99291; G0480; J1170; J1630; J1650; J2250; J2310; J2405; J2704; J3010; J3486; J7030; J7040; J7799; U0003

== ENCOUNTER 2024-03-06 11:25 | Emergency (ER) | payer SELFPAY ==
--- OUTSIDE RECORDS SUMMARY | 2024-03-06 11:28 | XMS REPORT | Continuity of Care Document ---
Author Name Unknown Address [address] [facility]. [address] [place] [address] [facility] Address [address] [facility] [address] [place] [address] Care Team Providers Care Branch Controller Name Role Phone CODY BARAHONA Primary Care Physician Unavaila CODY Falcon Attending Clinician Unavailable Cody Beckwith MD Attending Clinician MARCIA RODRIGEZ Attending Clinician Unavailab Marcia Urena Attending Clinician [phone] CODY BECKWITH Admitting Clinician Unavailable Payers Payer Name Policy Type Policy Number Effective Date Expirati on Date Source [facility] PPO/POS [id number] 2014 00:00:00 Allergies, Adverse Reactions, Alerts Allergy Name Allergy Type Status Severity Reaction(s) Onset Date Inactive Date Treating Clinician Comments Source NO KNOWN ALLERGIE S Drug Class Active [facility] Social History Social Habit Start Date Stop Date Quantity Comments Source Sex Assigned At 1980 00:00:00 1980 00:00:00 [facility] Smoking Status Start Date Stop Date Source Tobacco smoking consumption unknown [facility] Medications Ordered Medication Name Filled Medication Name Start Date Stop Date Current Medication? Ordering Clinician Indication Dosage Frequency Signature (SIG) Comments Components Source morpHINE (4 mg/mL) injection 4 mg 03-28 20:15: 00 03-28 20:25 :00 No 4mg 4 mg, Slow IV Push, ONCE, 1 dose, On Tue03/28/23 at 1515, Routine [facility] iopamidol (ISOVUE 370-500 mL) injection 80 mL 03-28 19:30: 00 03-28 19:30 :00 No [id number] 80mL 80 mL, Intravenou s, ONCE, 1 dose, On Tue03/28/23 at 1430, Routine [facility] ondansetron (ZOFRAN (PF)) injection 4 mg 03-28 18:45: 00 03-28 18:02 :00 No 4mg 4 mg, Slow IV Push, ONCE, 1 dose, On Tue03/28/23 at 1345, JOSE LUIS [facility] morpHINE (4 mg/mL) injection 4 mg 03-28 17:45: 00 03-28 18:01 :00 No 4mg 4 mg, Slow IV Push, ONCE, 1 dose, On Tue03/28/23 at 1245, Routine [facility] ampicillin- sulbactam (UNASYN) 3 g in NaCl 0.9% (NS) 100 mL MINI-BAG 03-28 17:45: 00 03-28 18:15 :00 No 3g 3 g, IV Piggyback, ONCE, 1 dose, On Tue03/28/23 at 1245, Administer over 30 Minutes, 100 mL
Reas on for Anti-Infec tive: Empiric Therapy for Suspected Infection< br>Empiric Therapy Site: HEENT
D uration of therapy: 72 hours [facility] proMETHazin e 25 mg tablet 03-28 00:00: 00 Yes [id number] 12.5mg Take 0.5 tablets by mouth every 6 (six) hours as needed for Nausea and Vomiting (N/V). [facility] amoxicillin -clavulanat e 875-125 mg per tablet 03-28 00:00: 00 04-08 04:59 :00 No [id number] 1{tbl} Take 1 tablet by mouth every 12 (twelve) hours for 10 days. [facility] HYDROcodone -acetaminop hen 5-325 mg tablet 03-28 00:00: 00 04-05 04:59 :00 No [id number] 1{tbl} Take 1 tablet by mouth every 6 (six) hours as needed for Pain (scale 7-10) for up to 7 days. Indication s: acute pain [facility] clindamycin (CLEOCIN HCL) capsule 300 mg 03-27 14:45: 00 03-27 14:09 :00 No 300mg 300 mg, Oral, ONCE, 1 dose, On 03/27/23 at 0945, JOSE LUIS
Re ason for Anti-Infec tive: Empiric Therapy for Suspected Infection< br>Empiric Therapy Site: HEENT
D uration of therapy: 5 days
Re stricted use approved by: ED PROVIDER [facility] chlorhexidi ne 0.12 % mouthwash 03-27 00:00: 00 Yes [id number] 15mL Swish and spit out 15 mL in the morning and 15 mL in the evening. [facility] clindamycin 150 mg capsule 03-27 00:00: 00 04-04 04:59 :00 No [id number] 450mg Take 3 capsules by mouth in the morning and 3 capsules at noon and 3 capsules in the evening. Do all this for 7 days. [facility] Vital Signs Vital Name Observation Time Observation Value Comments S ource Systolic blood pressure 2023-03-28 19:52:00 121 mm[Hg] [facility] Diastolic blood pressure 2023-03-28 19:52:00 75 mm[Hg] [facility] Heart rate 2023-03-28 19:52:00 75 /min [facility] Respiratory rate 2023-03-28 19:52:00 16 /min [facility] Oxygen saturation in Arterial blood by Pulse oximetry 2023-03-28 19:52:00 95 /min [facility] Body temperature 2023-03-28 17:17:00 37.11 Jazlyn [facility] Body weight 2023-03-28 17:17:00 68.04 kg [facility] BMI 2023-03-28 17:17:00 27.44 kg/m2 [facility] Systolic blood pressure 2023-03-27 13:48:00 108 mm[Hg] [facility] Diastolic blood pressure 2023-03-27 13:48:00 78 mm[Hg] [facility] Heart rate 2023-03-27 13:48:00 94 /min [facility] Body temperature 2023-03-27 13:48:00 37.11 Jazlyn [facility] Respiratory rate 2023-03-27 13:48:00 16 /min [facility] Body height 2023-03-27 13:48:00 157.5 cm [facility] Body weight 2023-03-27 13:48:00 68.04 kg [facility] BMI 2023-03-27 13:48:00 27.44 kg/m2 [facility] Oxygen saturation in Arterial blood by Pulse oximetry 2023-03-27 13:48:00 95 /min [facility] Procedures Procedure Date / Time Performed Performing Clinicia n Source CT MAXILLOFACIAL/MANDIBLE W CONTRAST 2023-03-28 18:34:15 Cody Beckwith [facility] BASIC METABOLIC PANEL (NA, K, CL, CO2, GLUCOSE, BUN, CREATININE, CA) 2023-03-28 18:05:00 Cody Beckwith [facility] CBC WITH DIFF 2023-03-28 18:05:00 Cody Beckwith [facility] CONSENT/REFUSAL FOR DIAGNOSIS AND TREATMENT 2023-03-28 17:11:19 Doctor Unassigned, [place] [facility] ASSIGNMENT OF BENEFITS 2023-03-27 14:15:01 Docto r Unassigned, [place] [facility] CONSENT/REFUSAL FOR DIAGNOSIS AND TREATMENT 2023-03-27 13:38:19 Doctor Unassigned, [place] [facility] Encounters Start Date/Time End Date/Time Encounter Type Admission Type Attending [facility] Care Facility Care Department Encounter ID Source 2023-04-04 13:30:07 2023-04-04 13:30:07 Outpatient [facility] [id number] Jose Joseph 2023-03-28 12:18:00 2023-03-28 15:33:00 Emergency X CODY BECKWITH [facility] ERT [id number] [facility] 2023-03-28 12:18:00 2023-03-28 15:33:00 Emergency Cody Beckwith [facility] [id number] [facility] 2023-03-27 08:51:00 2023-03-27 09:19:00 Emergency X MARCIA RODRIGEZ [facility] ERT [id number] [facility] 2023-03-27 08:51:00 2023-03-27 09:19:00 Emergency Marcia Rodrigez [facility] [id number] [facility] 2023-03-01 08:26:09 2023-03-01 08:26:09 Outpatient [facility] [id number] Jose Joseph 2023-02-03 09:04:51 2023-02-03 09:04:51 Outpatient [facility] [id number] Jose Joseph 2022-12-29 08:22:29 2022-12-29 08:22:29 Outpatient [facility] [id number] Jose Joseph 2022-12-24 10:38:43 2022-12-24 10:38:43 Outpatient [facility] [id number] Jose Joseph 2022-12-23 15:03:43 2022-12-23 15:03:43 Outpatient [facility] 032 Jose Bon Jake Results Test Description Test Time Test Comments Results Result Co mments Source [facility] WITH [id number] 18:24:29* Test Item Value Reference Range Interpretation Comme nts WBC (test code = 6690-2) 15.31 See_Comment H [Automated message] The system which generated this result transmitted reference range: 4.30 - 11.10 10*3/?L. The reference range was not used to interpret this result as normal/abnormal. RBC (test code = 789-8) 4.63 See_Comment [Automated message] The system which generated this result transmitted reference range: 3.93 - 5.25 10*6/?L. The reference range was not used to interpret this result as normal/abnormal. HGB (test code = 718-7) 13.9 g/dL 11.6-15.0 HCT (test code = 4544-3) 41.2 % 35.7-45.2 MCV (test code = 787-2) 89.0 fL 80.6-95.5 MCH (test code = 785-6) 30.0 pg 25.9-32.8 MCHC (test code = 786-4) 33.7 g/dL 31.6-35.1 RDW-SD (test code = 55901-3) 43.6 fL 39.0-49.9 RDW-CV (test code = 788-0) 13.3 % 12.0-15.5 PLT (test code = 777-3) 320 See_Comment [Automated message] The system which generated this result transmitted reference range: 166 - 358 10*3/?L. The reference range was not used to interpret this result as normal/abnormal. MPV (test code = 01086-1) 11.1 fL 9.5-12.9 NRBC/100 WBC (test code = 2590340056) 0.0 See_Comment [Automated message] The system which generated this result transmitted reference range: 0.0 - 10.0 /100 WBCs. The reference range was not used to interpret this result as normal/abnormal. NRBC x10^3 (test code = 0597315025) See_Comment [Automated message] The system which generated this result transmitted reference range: 10*3/?L. The reference range was not used to interpret this result as normal/abnormal. GRAN MAT (NEUT) % (test code = 770-8) 76.2 % IMM GRAN % (test code = 2097805649) 0.50 % LYMPH % (test code = 736-9) 13.3 % MONO % (test code = 5905-5) 7.3 % EOS % (test code = 713-8) 2.2 % BASO % (test code = 706-2) 0.5 % GRAN MAT x10^3(ANC) (test code = 6077076740) 11.69 10*3/uL 1.88-7.09 H IMM GRAN x10^3 (test code = 9481112744) 0.07 10*3/uL 0.00-0.06 H LYMPH x10^3 (test code = 731-0) 2.04 10*3/uL 1.32-3.29 MONO x10^3 (test code = 742-7) 1.11 10*3/uL 0.33-0.92 H EOS x10^3 (test code = 711-2) 0.33 10*3/uL 0.03-0.39 BASO x10^3 (test code = 704-7) 0.07 10*3/uL 0.01-0.07 Lab Interpretation (test code = 32708-1) [facility]13* Test Item Value Reference Range Interpretation Comme nts NOTE: (test code = 998) (NOTE) IN ACCORDANCE [facility] FEDERAL GUIDELINES REQUIRING ALL VERBAL REQUESTS FOR LABORATORY TESTS TO BE ACCOMPANIED BY WRITTEN AUTHORIZATION WITHIN 30 DAYS OF THIS REQUEST, PLEASE SIGN BELOW AND RETURN A COPY OF THIS REPORT BY FAX TO THE LABORATORY SCANNING DEPARTMENT AT [phone]. PHYSICIAN'S SIGNATURE DATE UNLESS OTHERWISE INDICATED, ALL TESTING PERFORMED AT [facility] [address] [place] [id number] FIXING MACHINE OPERATOR: ANAYA PHILLIPS M.D. CLIA NUMBER [id number] [facility] [place]. [id number] HEMOGLOBIN [id number] 22:10:58* Test Item Value Reference Range Interpretation Comme nts HEMOGLOBIN A1c (test code = 67198) 6.0 % 4.2-5.6 H [employer] GUIDELINES FOR HGB A1C: PREDIABETES/INCREASED RISK . . . . . . . 5.7-6.4% DIAGNOSIS OF DIABETES . . . . . . . . . >=6.5% WITH CONFIRMATION OR APPROPRIATE SYMPTOMS NOTE: ASSAY MAY BE AFFECTED BY HEMOGLOBINOPATHIES (SICKLE CELL ANEMIA, S-C DISEASE, OTHERS) OR ARTIFICIALLY LOWERED BY DECREASED RED CELL SURVIVAL (HEMOLYTIC ANEMIAS, BLOOD LOSS, ETC.). CONSIDER ALTERNATE TESTING OR LABORATORY CONSULTATION. COMPREHENSIVE METABOLIC [id number] 06:44:46* Test Item Value Reference Range Interpretation Comme nts GLUCOSE (test code = 7) 145 MG/DL 70-99 H BUN (test code = 2207) 10 MG/DL 6-20 CREATININE (test code = 2213) 0.59 MG/DL 0.60-1.30 L eGFR (2020 CKD-EPI) (test code = 33240) 114 ML/MIN/1.73 >60 CALC BUN/CREAT (test code = 5) 17 RATIO 6-28 SODIUM (test code = 223) 139 MEQ/L 133-146 POTASSIUM (test code = 2228) 4.2 MEQ/L 3.5-5.4 CHLORIDE (test code = 2214) 101 MEQ/L 95-107 CARBON DIOXIDE (test code = 2205) 22 MEQ/L 19-31 CALCIUM (test code = 220) 9.8 MG/DL 8.5-10.5 PROTEIN, TOTAL (test code = 2228) 6.6 G/DL 6.1-8.3 ALBUMIN (test code = 2201) 4.4 G/DL 3.5-5.2 CALC GLOBULIN (test code = 2240) 2.2 G/DL 1.9-3.7 CALC A/G RATIO (test code = 223) 2.0 RATIO 1.0-2.6 BILIRUBIN, TOTAL (test code = 2206) <0.2 MG/DL See_Comment [Automated me ssage] The system which generated this result transmitted reference range: <=1.2. The reference range was not used to interpret this result as normal/abnormal. ALKALINE PHOSPHATASE (test code = 2203) 69 U/L 40-115 AST (test code = 2218) 14 U/L 9-40 ALT (test code = 2219) 16 U/L 5-40 HEPATITIS PANEL, [id number] 04:18:51* Test Item Value Reference Range Interpretation Comme nts HEPATITIS A IgM (test code = 09498) NON-REACTIVE NON-REACTIVE HEPATITIS B CORE IgM (test code = 4644) NON-REACTIVE NON-REACTIVE HEPATITIS B SURF AG (test code = 2739) NON-REACTIVE NON-REACTIVE HEPATITIS C ANTIBODY (test code = 4675) NON-REACTIVE NON-REACTIVE INTERPRETATION HEPATITIS A: (test code = 2552) (NOTE) Hepatitis A serology shows no evidence of acute hepatitis A. INTERPRETATION HEPATITIS B: (test code = 45368) (NOTE) Hepatitis B serology shows no evidence of acute hepatitis B andno indication of exposure to hepatitis B virus in the previous carla eight months. INTERPRETATION HEPATITIS C: (test code = 44753) (NOTE) Hepatitis C serology shows no evidence of exposure to hepatitisC virus at this time. It can take up to 12 months after exposure tothe hepatitis C virus for antibodies to become detectable in the blood in certain patients. HIV 1/2 4TH GEN, RFLX [id number] 04:18:51* Test Item Value Reference Range Interpretation Comme nts HIV 1/2 4TH GEN, RFLX CONF (test code = 3514) NON-REACTIVE NON-REACTIVE UNLESS OTHERWISE INDICATED, ALL TESTING PERFORMED AT [facility] [address] [place] [address] FIXING MACHINE OPERATOR: ANAYA PHILLIPS M.D. CLIA NUMBER [id number] [facility] [place] [place]. [id number] CBC W/AUTO DIFF WITH [id number] 02:14:13* Test Item Value Reference Range Interpretation Comme nts WBC (test code = 1001) 9.3 K/UL 3.5-11.0 RBC (test code = 1002) 4.48 M/UL 3.80-5.40 HEMOGLOBIN (test code = 1003) 13.7 G/DL 11.5-15.5 HEMATOCRIT (test code = 1004) 39.5 % 34.0-45.0 MCV (test code = 1005) 88.2 fL 80.0-99.0 MCH (test code = 1006) 30.6 PG 25.0-33.0 MCHC (test code = 1007) 34.7 G/DL 31.0-36.0 RDW (test code = 1038) 12.8 % 11.5-15.0 NEUTROPHILS (test code = 1008) 53.3 % LYMPHOCYTES (test code = 1010) 35.4 % MONOCYTES (test code = 1011) 6.5 % EOSINOPHILS (test code = 1012) 3.8 % BASOPHILS (test code = 1013) 0.6 % IMMATURE GRANULOCYTES (test code = 1036) 0.4 % NUCLEATED RBCS (test code = 1065) 0.0 /100 WBC'S See_Comment [Automated [employer]] The system which generated this result transmitted reference range: 0.0. The reference range was not used to interpret this result as normal/abnormal. PLATELET COUNT (test code = 1015) 299 K/UL 130-400 ABSOLUTE NEUTROPHILS (test code = 1066) 4.97 K/UL 1.50-7.50 ABSOLUTE LYMPHOCYTES (test code = 1067) 3.30 K/UL 1.00-4.00 ABSOLUTE MONOCYTES (test code = 1068) 0.61 K/UL 0.20-1.00 ABSOLUTE EOSINOPHILS (test code = 1040) 0.35 K/UL 0.00-0.50 ABSOLUTE BASOPHILS (test code = 1069) 0.06 K/UL 0.00-0.20 ABS IMMATURE GRANULOCYTES (test code = 1020) 0.04 K/UL 0.00-0.10 ABS NUCLEATED RBCS (test code = 02750) 0.00 K/UL 0.00-0.11
[2024-03-06] MEDS ORDERED: NA CHLORIDE 0.9% 1,000 ML ONE (12:01)
[2024-03-06 12:37] LABS: Absolute Basophils 0.1 K/uL (0-0.5); Absolute Eosinophils 0.2 K/uL (0-0.5); Absolute Lymphocytes (CBC) 3.7 K/uL (0.7-4.9); Absolute Monocytes 1.1 K/uL (0.1-1.3); Absolute Neutrophil 7.8 K/uL (1.8-8.0); Basophils % 0.7 % (0-1.3); Eosinophils % 1.4 % (0-4.4); Hemoglobin 13.8 g/dL (12.0-15.0); Lymphocytes % 28.6 % (15.3-44.8); MCH 29.6 pg (27.0-35.0); MCHC 32.9 g/dL (32.0-36.0); MPV 9.3 fL (7.6-11.3); Monocytes % 8.6 % (3.3-12.3); Neutrophils % 60.7 % (41.7-73.7); Platelets 377 thou/uL (152-406); RBC Red Blood Cell Count 4.67 M/uL (3.86-4.86); Red Cell Distribution Width 13.9 % (12.1-15.2)
--- NOTE | 2024-03-06 12:48 | RAD REPORT ---
EXAM DESCRIPTION: CT - CTHCSPWOC - 03/06/2024 12:12 pm CLINICAL HISTORY: Dizziness;Headache COMPARISON: No comparisons TECHNIQUE: Axial thin cut noncontrast CT images of the head were obtained. Axial thin cut noncontrast CT images of the cervical spine were obtained. Multiplanar reformatted images were generated and reviewed. All CT scans are performed using dose optimization technique as appropriate and may include automated exposure control or mA/KV adjustment according to patient size. FINDINGS: CT HEAD WITHOUT CONTRAST: No acute hemorrhage, hydrocephalus or extra-axial collection is identified.No areas of brain edema or midline shift. The mastoid air cells are clear. Polypoidal left maxillary sinus mucosal thickening with small air-fl uid level. .The calvarium is intact. CT CERVICAL SPINE WITHOUT CONTRAST: No fracture or subluxation.No prevertebral soft tissues swelling is identified. IMPRESSION: No acute traumatic intracranial or cervical spine findings. Polypoidal left maxillary sinus mucosal thickening with small air-fluid level trauma please correlate for signs/symptoms of acute sinusitis.
[2024-03-06 12:52] LABS: PT Prothrombin Time 11.5 SECONDS (9.5-12.5); PTT, Activated Partial Thromb 29.3 SECONDS (24.3-36.9); Protime INR 1.05
--- NOTE | 2024-03-06 12:52 | RAD REPORT ---
EXAM DESCRIPTION: CT - CTFB CLINICAL HISTORY: PAIN COMPARISON: Facial Bones W/ Mpr dated 08/27/2021; Head C Spine Mpr Wo Con dated 03/06/2024 TECHNIQUE: Axial thin cut noncontrast CT images of the face were obtained with sagittal and coronal reconstruction images. All CT scans are performed using dose optimization technique as appropriate and may include automated exposure control or mA/KV adjustment according to patient size. FINDINGS: Mild premalar subcutaneous soft tissue swelling on the right. No acute facial bone fracture is seen.The mandible is intact. The globes and orbital contents are grossly unremarkable.Polypoidal left maxillary sinus mucosal thic kening with aerated secretions and small air-fluid level. Dental and periodontal disease, with a small periapical collection along the root of the left maxilla ry lateral incisor. Other scattered periapical lucencies without discrete collections. IMPRESSION: Negative for facial bone fracture. Mild right premalar subcutaneous soft tissue swelling . No hematoma. Dental and periodontal disease as above.
[2024-03-06 13:00] LABS: ALT/SGPT 60 U/L (13-56); AST/SGOT 38 U/L (15-37); Albumin 4.2 g/dL (3.4-5.0); Alkaline Phosphatase 89 U/L (45-117); Anion Gap 12.1 mEq/L (5.0-15.0); BUN Blood Urea Nitrogen 20 mg/dL (7-18); Bicarbonate 23 mEq/L (21-32); Bilirubin Direct < 0.2 mg/dL (0-0.2); Bilirubin Indirect, Calculated 0.1 mg/dL (0.2-0.8); Bilirubin Total 0.3 mg/dL (0.2-1.0); Globulin 4.1 g/dL (2.3-3.5); Glomerular Filtration Rate 84 ml/min (=/>90); Glucose Level 115 mg/dL (74-106); Potassium 3.1 mEq/L (3.5-5.1); Protein, Total 8.3 g/dL (6.4-8.2); Sodium Level 137 mEq/L (136-145)
[2024-03-06] MEDS ORDERED: IBUPROFEN 400 MG TAB ONE (13:23)
[2024-03-06] MEDS ORDERED: POTASSIUM 25 MEQ EFFERV TAB ONE (13:41)
[2024-03-06] MEDS ORDERED: CLINDAMYCIN 900MG/D5W 900 MG/50 ML IVPB IV ONE (13:42)
--- NOTE | 2024-03-06 14:05 | ER ---
Nurse's Notes [facility] Name: Katherin Chin Age: 44 yrs Sex: Female : 1980 Arrival Date: 03/06/2024 Time: 11:25 Bed 2 Private MD: Diagnosis: Dental caries, unspecified;Unspecified injury of head, initial encounter;Contusion of unspecified part of head, initial encounter-right facial Presentation: 03/06 11:33 Chief complaint: Patient states: "Yesterday, I was at a a [employer] convention and a lady mb9 fell off the stage and hit me on my right side of my face. I noticed some dizziness, throat itchy, pain and swelling in my face, seeing dots, can't eat, and I feel off.". Coronavirus screen: At this time, the client does not indicate any symptoms associated with coronavirus-19. Ebola Screen: No symptoms or risks identified at this time. Initial Sepsis Screen: Does the patient meet any 2 criteria? No. Patient's initial sepsis screen is negative. Does the patient have a suspected source of infection? No. Patient's initial sepsis screen is negative. Risk Assessment: Do you want to hurt yourself or someone else? Patient reports no desire to harm self or others. Onset of symptoms was March 06, 2024. 11:33 Method Of Arrival: Amb[facility] 11:33 Acuity: ELIDA 3 mb9 Triage Assessment: 11:38 General: Appears uncomfortable, Behavior is cooperative. Pain: Complains of pain in mb9 face and throat. EENT: Throat is reddened. Neuro: Fuentes Agitation-Sedation Scale (RASS): 0 - Alert and Calm Level of Consciousness is awake, alert, obeys commands, Oriented to person, place, time, situation, Appropriate for age Drug Inspector are equal bilaterally Moves all extremities. Gait is steady, Speech is normal, Facial symmetry appears normal, Pupils are PERRLA, Intact Reports dizziness. Cardiovascular: Patient's skin is warm and dry. Respiratory: Airway is patent Respiratory effort is even, unlabored, Respiratory pattern is regular, symmetrical. GI: No signs and/or symptoms were reported involving the gastrointestinal system. : No signs and/or symptoms were reported regarding the genitourinary system. Derm: Skin is pink, warm \\T\\ dry. Musculoskeletal: Range of motion: intact in all extremities. Historical: - Allergies: 11:37 Lidocaine; mb9 - Home Meds: 11:37 None [Active]; mb9 - PMHx: 11:37 Hypertensive disorder; mb9 - PSHx: 11:37 Appendectomy; Tonsillectomy; section; mb9 - Immunization history:: Adult Immunizations up to date. - Infectious Disease History:: Denies. - Social history:: Smoking status: Patient reports the use of cigarette tobacco products, smokes one pack cigarettes per day. - Family history:: pertinent for. Screenin:13 [facility] ED Fall Risk Assessment (Adult) History of falling in the last 3 months, ld1 including since admission No falls in past 3 months (0 pts). Abuse screen: Denies threats or abuse. Denies injuries from another. Nutritional screening: No deficits noted. Tuberculosis screening: No symptoms or risk factors identified. Assessment: 12:13 General: Appears in no apparent distress. uncomfortable, Behavior is cooperative, ld1 anxious. Pain: Complains of pain in right eye, right cheek and left jaw Pain does not radiate. Pain currently is 8 out of 10 on a pain scale. Quality of pain is described as throbbing, Pain began suddenly, Is continuous. Neuro: Level of Consciousness is awake, alert, obeys commands, Oriented to person, place, time, situation. Neuro: Reports dizziness, headache. Cardiovascular: Capillary refill < 3 seconds Patient's skin is warm and dry. Respiratory: Airway is patent Respiratory effort is even, unlabored. GI: Abdomen is flat, non-distended. : No signs and/or symptoms were reported regarding the genitourinary system. EENT: No signs and/or symptoms were reported regarding the EENT system. Derm: No signs and/or symptoms reported regarding the dermatologic system. Musculoskeletal: No signs and/or symptoms reported regarding the musculoskeletal system. Vital Signs: 11:33 BP 138 / 94; Pulse 102; Resp 18; Temp 97.3; Pulse Ox 100% on R/A; Weight 68.04 kg; mb9 Height 5 ft. 2 in. ; Pain 10/10; 14:04 BP 132 / 70; Pulse 95; Resp 20; Pulse Ox 97% on R/A; ld1 14:15 BP 135 / 93; Pulse 88; Resp 16; Pulse Ox 99% ; ko1 11:33 Body Mass Index 27.44 (68.04 kg, 157.48 cm) mb9 11:33 Pain Scale: Adult mb9 ED Course: 11:27 Patient arrived in ED. mg5 11:36 Triage completed. mb9 11:37 Arm band placed on. mb9 11:50 Gulshan Benoit MD is Attending Physician. [facility] 12:13 Patient has correct armband on for positive identification. Placed in gown. Bed in low ld1 position. Call light in reach. Side rails up X2. bus driver/monitor on. Pulse ox on. NIBP on. Door closed. Noise minimized. Warm blanket given. 12:14 CT Head C Spine In Process Unspecified. EDMS 12:15 CT Facial Bones W/O Con In Process Unspecified. EDMS 12:26 Acetaminophen Sent. ko1 12:26 Basic Metabolic Panel Sent. ko1 12:26 CBC with Diff Sent. ko1 12:26 ETOH Level Sent. ko1 12:26 Hepatic Function Sent. ko1 12:26 PT-INR Sent. ko1 12:26 Ptt, Activated Sent. ko1 12:26 Salicylate Sent. ko1 12:27 Initial lab(s) drawn, by me, sent to lab. EKG done, by ED staff, reviewed by Gulshan Benoit MD. 12:34 Florencia Reyes, RN is Primary Nurse. ld1 12:34 Inserted saline lock: 20 gauge in right antecubital area, using aseptic technique. ld1 Blood collected. 14:02 Kaveh Sood DDS is Referral Physician. [facility] 14:15 Provided Education on: meds. ko1 14:15 No provider procedures requiring assistance completed. IV discontinued, intact, ko1 bleeding controlled, No redness/swelling at site. Pressure dressing applied. Administered Medications: 12:33 Drug: NS 0.9% IV 1000 ml IV at 1 bolus Per protocol; 1000 mL bolus Route: IV; Rate: 1 ld1 bolus; Site: right antecubital; 13:37 Drug: Ibuprofen PO 800 mg PO once Route: PO; ld1 14:05 Follow up: Response: No adverse reaction ko1 13:47 Drug: Potassium PO Effervescent Tablet 25 mEq PO once; dissolve in 4 ounces of water or ld1 juice Route: PO; 14:05 Follow up: Response: No adverse reaction ko1 13:47 Drug: Clindamycin IVPB 900 mg IVPB once over 30 mins; (mix in 50 mL) Route: IVPB; ld1 Infused Over: 30 mins; Site: right antecubital; Medication: 12:13 VIS not applicable for this client. ld1 Outcome: 14:05 Discharge ordered by . bee 14:15 Discharged to home ambulatory, with family, ko1 14:15 Condition: stable 14:15 Discharge instructions given to patient, family, Instructed on discharge instructions, follow up and referral plans. medication usage, Demonstrated understanding of instructions, follow-up care, medications, Prescriptions given X 2, 14:16 Patient left the ED. 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 I noticed some dizziness, throat itchy, pain and swelling in my face, can't eat, and I feel off." mb9
--- NOTE | 2024-03-06 14:05 | EDPHYS ---
Physician Documentation [facility] Name: Katherin Chin Age: 44 yrs Sex: Female : 1980 Arrival Date: 03/06/2024 Time: 11:25 Bed 2 Private MD: FUAD Physician Gulshan Benoit HPI: 03/06 13:57 This 44 yrs old Female presents to ER via Ambulatory with complaints of bee Dizziness, FACE PAIN. 13:57 The patient presents with lightheadedness. Onset: The symptoms/episode began/occurred 1 bee day(s) ago. Context: occurred at home, occurred while the patient was standing, just prior to the episode the patient experienced no apparent symptoms. Modifying factors: The symptoms are alleviated by nothing, the symptoms are aggravated by nothing. Associated signs and symptoms: Pertinent positives: dizziness. Severity of symptoms: At their worst the symptoms were mild in the emergency department the symptoms are unchanged. Patient's baseline: Neuro: alert and fully oriented. The patient has not experienced similar symptoms in the past. Historical: - Allergies: 11:37 Lidocaine; mb9 - Home Meds: 11:37 None [Active]; mb9 - PMHx: 11:37 Hypertensive disorder; mb9 - PSHx: 11:37 Appendectomy; Tonsillectomy; section; mb9 - Immunization history:: Adult Immunizations up to date. - Infectious Disease History:: Denies. - Social history:: Smoking status: Patient reports the use of cigarette tobacco products, smokes one pack cigarettes per day. - Family history:: pertinent for. ROS: 13:57 Constitutional: Negative for fever, chills, and weight loss, Eyes: Negative for injury, bee pain, redness, and discharge, Neck: Negative for injury, pain, and swelling, Cardiovascular: Negative for chest pain, palpitations, and edema, Respiratory: Negative for shortness of breath, cough, wheezing, and pleuritic chest pain, Abdomen/GI: Negative for abdominal pain, nausea, vomiting, diarrhea, and constipation, Back: Negative for injury and pain, : Negative for injury, bleeding, discharge, and swelling, MS/Extremity: Negative for injury and deformity, Skin: Negative for injury, rash, and discoloration, Neuro: Negative for headache, weakness, numbness, tingling, and seizure, Psych: Negative for depression, anxiety, suicide ideation, homicidal ideation, and hallucinations, Allergy/Immunology: Negative for hives, rash, and allergies, Endocrine: Negative for neck swelling, polydipsia, polyuria, polyphagia, and marked weight changes, Hematologic/Lymphatic: Negative for swollen nodes, abnormal bleeding, and unusual bruising, 13:57 ENT: Positive for rhinorrhea, sinus congestion, Teeth pain Exam: 13:57 Constitutional: This is a well developed, well nourished patient who is awake, alert, bee and in no acute distress. Head/Face: Normocephalic, atraumatic. Eyes: Pupils equal round and reactive to light, extra-ocular motions intact. Lids and lashes normal. Conjunctiva and sclera are non-icteric and not injected. Cornea within normal limits. Periorbital areas with no swelling, redness, or edema. ENT: Nares patent. No nasal discharge, no septal abnormalities noted. Tympanic membranes are normal and external auditory canals are clear. Oropharynx with no redness, swelling, or masses, exudates, or evidence of obstruction, uvula midline. Mucous membranes moist. Neck: Trachea midline, no thyromegaly or masses palpated, and no cervical lymphadenopathy. Supple, full range of motion without nuchal rigidity, or vertebral point tenderness. No Meningismus. Chest/axilla: Normal chest wall appearance and motion. Nontender with no deformity. No lesions are appreciated. Cardiovascular: Regular rate and rhythm with a normal S1 and S2. No gallops, murmurs, or rubs. Normal PMI, no JVD. No pulse deficits. Respiratory: Lungs have equal breath sounds bilaterally, clear to auscultation and percussion. No rales, rhonchi or wheezes noted. No increased work of breathing, no retractions or nasal flaring. Abdomen/GI: Soft, non-tender, with normal bowel sounds. No distension or tympany. No guarding or rebound. No evidence of tenderness throughout. Back: No spinal tenderness. No costovertebral tenderness. Full range of motion. Skin: Warm, dry with normal turgor. Normal color with no rashes, no lesions, and no evidence of cellulitis. MS/ Extremity: Pulses equal, no cyanosis. Neurovascular intact. Full, normal range of motion. Neuro: Awake and alert, GCS 15, oriented to person, place, time, and situation. Cranial nerves II-XII grossly intact. Motor strength 5/5 in all extremities. Sensory grossly intact. Cerebellar exam normal. Normal gait. Psych: Awake, alert, with orientation to person, place and time. Behavior, mood, and affect are within normal limits. 13:57 Head/face: Noted is swelling, that is mild, of the right cheek, right jaw and left jaw, 14:09 ECG was reviewed by the Attending Physician. [facility] Vital Signs: 11:33 BP 138 / 94; Pulse 102; Resp 18; Temp 97.3; Pulse Ox 100% on R/A; Weight 68.04 kg; mb9 Height 5 ft. 2 in. ; Pain 10/10; 14:04 BP 132 / 70; Pulse 95; Resp 20; Pulse Ox 97% on R/A; ld1 14:15 BP 135 / 93; Pulse 88; Resp 16; Pulse Ox 99% ; ko1 11:33 Body Mass Index 27.44 (68.04 kg, 157.48 cm) mb9 11:33 Pain Scale: Adult mb9 MDM: 11:50 Patient medically screened. bee 14:00 Differential diagnosis: head injury. Data reviewed: vital signs, nurses notes, lab test bee result(s), EKG. Consideration of Admission/Observation Escalation of care including admission/observation considered. I considered the following discharge prescriptions or medication management in the emergency department Medications were administered in the Emergency Department. See MAR. Independent interpretation of the following test(s) in the Emergency Department CT Scan: My interpretation is ct head, c spine,facial. Test considered but Not performed: Ultrasound no carotid usg. Historians other than the Patient: Spouse/Significant Other: spouse well informed. Care significantly affected by the following chronic conditions: Hypertension. 03/06 11:52 Order name: Acetaminophen; Complete Time: 13:27 bee 03/06 11:52 Order name: Basic Metabolic Panel; Complete Time: 13:27 bee 03/06 11:52 Order name: CBC with Diff; Complete Time: 13:27 bee 03/06 11:52 Order name: ETOH Level; Complete Time: 13:27 03/06 11:52 Order name: Hepatic Function; Complete Time: 13:27 bee 03/06 11:52 Order name: PT-INR; Complete Time: 13:27 03/06 11:52 Order name: Ptt, Activated; Complete Time: 13:27 [facility] 03/06 11:52 Order name: Salicylate; Complete Time: 13:27 [facility] 03/06 11:52 Order name: CT Head C Spine; Complete Time: 13:27 [facility] 03/06 11:52 Order name: CT Facial Bones W/O Con; Complete Time: 13:27 [facility] 03/06 11:52 Order name: EKG; Complete Time: 11:52 [facility] 03/06 11:52 Order name: EKG - Nurse/Tech; Complete Time: 12:33 [facility] 03/06 11:52 Order name: IV Saline Lock; Complete Time: 12:33 [facility] 03/06 11:52 Order name: Labs collected and sent; Complete Time: 12:26 [facility] 03/06 11:52 Order name: Suicide Screening ([place]); Complete Time: 12:10 [facility] EC:09 Rate is 95 beats/min. Rhythm is regular. QRS [place] is Normal. [place] interval is normal. QRS bee interval is normal. QT interval is normal. No Q waves. T waves are Normal. ST Segment is depressed in leads III, aVF. Clinical impression: Abnormal EKG without significant change and No evidence of ischemia. Interpreted by me. Reviewed by me. Administered Medications: 12:33 Drug: NS 0.9% IV 1000 ml IV at 1 bolus Per protocol; 1000 mL bolus Route: IV; Rate: 1 ld1 bolus; Site: right antecubital; 13:37 Drug: Ibuprofen PO 800 mg PO once Route: PO; ld1 14:05 Follow up: Response: No adverse reaction ko1 13:47 Drug: Potassium PO Effervescent Tablet 25 mEq PO once; dissolve in 4 ounces of water or ld1 juice Route: PO; 14:05 Follow up: Response: No adverse reaction ko1 13:47 Drug: Clindamycin IVPB 900 mg IVPB once over 30 mins; (mix in 50 mL) Route: IVPB; ld1 Infused Over: 30 mins; Site: right antecubital; Disposition Summary: 03/06/24 14:05 Discharge Ordered Notes: Location: Home bee Problem: new bee Symptoms: have improved bee Condition: Stable bee Diagnosis - Dental caries, unspecified bee - Unspecified injury of head, initial encounter bee - Contusion of unspecified part of head, initial encounter - right facial bee Followup: bee - With: Private Physician - When: 2 - 3 days - Reason: Recheck today's complaints, Re-evaluation by your physician Followup: [facility] - With: Kaveh Sood DDS - When: 2 - 3 days - Reason: Recheck today's complaints, Re-evaluation by your physician Discharge Instructions: - Discharge Summary Sheet bee - Dental Caries, Adult bee - Dental Pain bee - Head Injury, Adult bee - Dental Pain, [id number] bee - Diet and Dental Disease [facility] Forms: - Medication Reconciliation Form [facility] - Antibiotic Education [facility] - Prescription Opioid Use [facility] - Patient Portal Instructions [facility] - Leadership Thank You Letter [facility] Prescriptions: - Clindamycin HCl 300 mg Oral capsule - take 1 capsule ORAL route every 6 hours for 7 days; 28 capsule; Refills: 0, [facility] Product Selection Permitted - Ibuprofen 600 mg Oral Tablet - take 1 tablet ORAL route every 6 hours As needed take with food; 30 tablet; [facility] Refills: 0, Product Selection Permitted Signatures: Dispatcher [employer] EDMS Gulshan Benoit MD MD cha Sims, Lauren RN RN ld1 Molly Patrick RN RN mb9 Charlene Quesada RN ko1 Corrections: (The following items were deleted from the chart) 11:52 11:52 ACETAMINOPHEN+C.LAB.BRZ ordered. EDMS EDMS 11:52 11:52 BASIC METABOLIC PANEL+C.LAB.BRZ ordered. EDMS EDMS 11:52 11:52 CBC+H.LAB.BRZ ordered. EDMS EDMS 11:52 11:52 ETHANOL+C.LAB.BRZ ordered. EDMS EDMS 11:52 11:52 HEPATIC FUNCTION+C.LAB.BRZ ordered. EDMS EDMS 11:52 11:52 PROTIME (+INR)+COAG.LAB.BRZ ordered. EDMS EDMS 11:52 11:52 PTT, ACTIVATED+COAG.LAB.BRZ ordered. EDMS EDMS 11:52 11:52 SALICYLATE+C.LAB.BRZ ordered. EDMS EDMS 11:52 11:52 Urinalysis+U.LAB.BRZ ordered. EDMS EDMS 11:52 11:52 URINE DRUG SCREEN+UC.LAB.BRZ ordered. EDMS EDMS
[2024-03-06 14:43] VITALS: BP 135/93; TEMP 97.3; O2SAT 99
--- NOTE | 2024-03-07 16:35 | EKG ---
Test Date: 2024-03-06 Test Time: 12:21:46 Voice Professor: Rosaura AYALA MEASUREMENT RESULTS: Intervals: Rate: 95 LA: 130 QRSD: 76 QT: 358 QTc: 449 [place]: P: 55 LA: 130 QRS: 78 T: 0 INTERPRETIVE STATEMENTS: Normal sinus rhythm ST & T wave abnormality, consider inferior ischemia Abnormal ECG Compared to ECG 12/17/2022 00:15:14 ST (T wave) deviation now present Possible ischemia now present Sinus tachycardia no longer present Right-axis deviation no longer present Electronically Signed On 03-07-24 16:33:04 CDT by [place]
== END 2024-03-06 14:16 | disposition home or self-care (01) ==
LOC: ER 11:25
DX: S00.83XA Contusion of other part of head, initial encounter (principal); K02.9 Dental caries, unspecified
CPT/HCPCS: 36415; 70450; 70486; 72125; 76377; 80048; 80076; 80143; 80179; 82077; 85025; 85610; 85730; 93005; 96374; 99285; J7030

== ENCOUNTER 2024-09-23 22:49 | Emergency (ER) | payer SELFPAY ==
--- OUTSIDE RECORDS SUMMARY | 2024-09-23 22:52 | XMS REPORT | Continuity of Care Document ---
Author Name Unknown Address [address] [facility] [place] [address] [facility] thconnect Address [address] [facility] [place] [address] Care Team Providers Care Radiosonde Operator Name Role Phone CODY BARAHONA Primary Care Physician JOSR Sahu Attending Clinician JOSR Man Attending Clinician Josr Man MD A Attending Clinician [phone] CODY BECKWITH Attending Clinician Unavailable Cody Beckwith MD Attending Clinician [phone] MARCIA RODRIGEZ Attending Clinician Unavailab Marcia Urena Attending Clinician JOSR DONG Admitting Clinician CODY Lamar Admitting Clinician Unavailable Payers Payer Name Policy Type Policy Number Effective Date Expirati on Date Source [facility] PPO/POS [id number] 2014 00:00:00 Allergies, Adverse Reactions, Alerts Allergy Name Allergy Type Status Severity Reaction(s) Onset Date Inactive Date Treating Clinician Comments Source LIDOCAIN E DRUG INGREDI Active Swelling 2023-10 00:00: 00 [facility] Lidocain e Propensi ty to adverse reaction s Active Swelling 2023-10 00:00: 00 [facility] NO KNOWN ALLERGIE S Drug Class Active [facility] Social History Social Habit Start Date Stop Date Quantity Comments Source Sexual orientation [facility] Sex assigned at 1980 00:00:00 1980 00:00:00 [facility] Smoking Status Start Date Stop Date Source Tobacco smoking consumption unknown [facility] Medications Ordered Medication Name Filled Medication Name Start Date Stop Date Current Medication? Ordering Clinician Indication Dosage Frequency Signature (SIG) Comments Components Source nitroglycer in (NITROSTAT) sublingual tablet 0.4 mg 2023-10 05:15: 00 08-29 05:13 :00 No .4mg 0.4 mg, Sublingual , ONCE, 1 dose, On Tue08/28/24 at 2315, JOSE LUIS [facility] aspirin tablet 325 mg 2023-10 05:15: 00 08-29 05:13 :00 No 325mg 325 mg, Oral, ONCE, 1 dose, On Tue08/28/24 at 2315, STAT [facility] iopamidol (ISOVUE 370-500 mL) injection 80 mL 2023-10 05:15: 00 08-29 05:15 :00 No [id number] 80mL 80 mL, Intravenou s, ONCE, 1 dose, On Tue08/28/24 at 2315, Routine [facility] alum-mag hydroxide-s imeth (MAG-AL PLUS) 200-200-20 mg/5 mL suspension 30 mL 2023-10 05:15: 00 08-29 05:15 :00 No 30mL 30 mL, Oral, ONCE, 1 dose, On Tue08/28/24 at 2315, JOSE LUIS [facility] ondansetron (ZOFRAN (PF)) injection 4 mg 2023-10 04:15: 00 08-29 04:10 :00 No 4mg 4 mg, Slow IV Push, ONCE, 1 dose, On Tue08/28/24 at 2215, Administer over 2-5 Minutes, 2 mL [facility] NaCl 0.9% (NS) bolus infusion 1,000 mL 2023-10 04:00: 00 08-29 05:39 :00 No 1000mL at 999 mL/hr, 1,000 mL, IV Infusion, ONCE, 1 dose, On Tue08/28/24 at 2200, STAT [facility] meclizine (TRAVEL-EAS E (MECLIZINE) ) tablet 50 mg 2023-10 04:00: 00 08-29 04:03 :00 No 50mg 50 mg, Oral, ONCE, 1 dose, On Tue08/28/24 at 2200, JOSE LUIS [facility] meclizine 25 mg tablet 2023-10 00:00: 00 Yes [id number] 25mg Take 1 tablet by mouth 3 (three) times daily as needed for Dizziness for up to 15 doses. [facility] ondansetron 4 mg disintegrat ing tablet 2023-10 00:00: 00 Yes [id number] 4mg Take 1 tablet by mouth every 8 (eight) hours as needed for Nausea and Vomiting (N/V) for up to 10 doses. [facility] aspirin 81 mg chewable tablet 2023-10 00:00: 00 09-28 05:59 :00 Yes [id number] 81mg Take 1 tablet by mouth in the morning for 30 doses. [facility] morpHINE (4 mg/mL) injection 4 mg 03-28 20:15: 00 03-28 20:25 :00 No 4mg 4 mg, Slow IV Push, ONCE, 1 dose, On Tue03/28/23 at 1515, Routine [facility] iopamidol (ISOVUE 370-500 mL) injection 80 mL 03-28 19:30: 00 03-28 19:30 :00 No [id number] 80mL 80 mL, Intravenou s, ONCE, 1 dose, On Tue03/28/23 at 1430, Routine [facility] ondansetron (ZOFRAN (PF)) injection 4 mg 03-28 18:45: 00 03-28 18:02 :00 No 4mg 4 mg, Slow IV Push, ONCE, 1 dose, On Tue03/28/23 at 1345, JOSE LUIS [facility] morpHINE (4 mg/mL) injection 4 mg 03-28 17:45: 00 03-28 18:01 :00 No 4mg 4 mg, Slow IV Push, ONCE, 1 dose, On Tue03/28/23 at 1245, Routine [facility] ampicillin- sulbactam (UNASYN) 3 g in NaCl 0.9% (NS) 100 mL MINI-BAG 03-28 17:45: 00 03-28 18:15 :00 No 3g 3 g, IV Piggyback, ONCE, 1 dose, On Tue03/28/23 at 1245, Administer over 30 Minutes, 100 mL
Reas on for Anti-Infec tive: Empiric Therapy for Suspected Infection< br>Empiric Therapy Site: HEENT
D uration of therapy: 72 hours [facility] proMETHazin e 25 mg tablet 03-28 00:00: 00 Yes [id number] 12.5mg Take 0.5 tablets by mouth every 6 (six) hours as needed for Nausea and Vomiting (N/V). [facility] amoxicillin -clavulanat e 875-125 mg per tablet 03-28 00:00: 00 04-08 04:59 :00 No [id number] 1{tbl} Take 1 tablet by mouth every 12 (twelve) hours for 10 days. [facility] HYDROcodone -acetaminop hen 5-325 mg tablet 03-28 00:00: 00 04-05 04:59 :00 No [id number] 1{tbl} Take 1 tablet by mouth every 6 (six) hours as needed for Pain (scale 7-10) for up to 7 days. Indication s: acute pain [facility] clindamycin (CLEOCIN HCL) capsule 300 mg 03-27 14:45: 00 03-27 14:09 :00 No 300mg 300 mg, Oral, ONCE, 1 dose, On Tue03/27/23 at 0945, JOSE LUIS
Re ason for Anti-Infec tive: Empiric Therapy for Suspected Infection< br>Empiric Therapy Site: HEENT
D uration of therapy: 5 days
Re stricted use approved by: ED PROVIDER [facility] chlorhexidi ne 0.12 % mouthwash 03-27 00:00: 00 Yes [id number] 15mL Swish and spit out 15 mL in the morning and 15 mL in the evening. [facility] chlorhexidi ne 0.12 % mouthwash 03-27 00:00: 00 Yes [id number] 15mL Swish and spit out 15 mL in the morning and 15 mL in the evening. [facility] clindamycin 150 mg capsule 03-27 00:00: 00 04-04 04:59 :00 No [id number] 450mg Take 3 capsules by mouth in the morning and 3 capsules at noon and 3 capsules in the evening. Do all this for 7 days. [facility] Vital Signs Vital Name Observation Time Observation Value Comments S ource Systolic blood pressure 2024-08-29 05:00:00 134 mm[Hg] [facility] Diastolic blood pressure 2024-08-29 05:00:00 72 mm[Hg] [facility] Heart rate 2024-08-29 05:00:00 72 /min [facility] Body temperature 2024-08-29 05:00:00 36.89 Jazlyn [facility] Respiratory rate 2024-08-29 05:00:00 22 /min [facility] Oxygen saturation in Arterial blood by Pulse oximetry 2024-08-29 05:00:00 98 /min [facility] Body height 2024-08-29 03:15:00 157.5 cm [facility] Body weight 2024-08-29 03:15:00 61.236 kg [facility] BMI 2024-08-29 03:15:00 24.69 kg/m2 [facility] Systolic blood pressure 2023-03-28 19:52:00 121 mm[Hg] [facility] Diastolic blood pressure 2023-03-28 19:52:00 75 mm[Hg] [facility] Heart rate 2023-03-28 19:52:00 75 /min [facility] Respiratory rate 2023-03-28 19:52:00 16 /min [facility] Oxygen saturation in Arterial blood by Pulse oximetry 2023-03-28 19:52:00 95 /min [facility] Body temperature 2023-03-28 17:17:00 37.11 [facility] Body weight 2023-03-28 17:17:00 68.04 kg [facility] BMI 2023-03-28 17:17:00 27.44 kg/m2 [facility] Systolic blood pressure 2023-03-27 13:48:00 108 mm[Hg] [facility] Diastolic blood pressure 2023-03-27 13:48:00 78 mm[Hg] [facility] Heart rate 2023-03-27 13:48:00 94 /min [facility] Body temperature 2023-03-27 13:48:00 37.11 [facility] Respiratory rate 2023-03-27 13:48:00 16 /min [facility] Body height 2023-03-27 13:48:00 157.5 cm [facility] Body weight 2023-03-27 13:48:00 68.04 kg [facility] BMI 2023-03-27 13:48:00 27.44 kg/m2 [facility] Oxygen saturation in Arterial blood by Pulse oximetry 2023-03-27 13:48:00 95 /min [facility] Procedures Procedure Date / Time Performed Performing Clinicia n Source POCT TEST 2024-08-29 04:00:00 Asa Dong [facility] LIPASE 2024-08-29 03:58:00 Josr Dong [facility] TROPONIN I 2024-08-29 03:58:00 Josr Dong [facility] COMP. METABOLIC PANEL (04780) 2024-08-29 03:58:00 Josr Dong [facility] CBC WITH DIFF 2024-08-29 03:58:00 [facility] 2024-08-29 03:58:00 Josr Dong [facility] CT MAXILLOFACIAL/MANDIBLE W CONTRAST 2023-03-28 18:34:15 Cody Beckwith [facility] BASIC METABOLIC PANEL (NA, K, CL, CO2, GLUCOSE, BUN, CREATININE, CA) 2023-03-28 18:05:00 Cody Beckwith [facility] CBC WITH DIFF 2023-03-28 18:05:00 [facility]/REFUSAL FOR DIAGNOSIS AND TREATMENT 2023-03-28 17:11:19 Doctor Unassigned, [place] [facility] ASSIGNMENT OF BENEFITS 2023-03-27 14:15:01 Docto r Unassigned, [place] [facility] CONSENT/REFUSAL FOR DIAGNOSIS AND TREATMENT 2023-03-27 13:38:19 Doctor Unassigned, [place] [facility] Encounters Start Date/Time End Date/Time Encounter Type Admission Type Attending [facility] Care Facility Care Department Encounter ID Source 2024-08-28 21:16:00 2024-08-28 23:40:00 Emergency X JOSR DONG PEDRAM [facility] ERT [id number] [facility] 2024-08-28 21:16:00 2024-08-28 23:40:00 Emergency Josr Dong [facility] [id number] [facility] 2023-04-04 13:30:07 2023-04-04 13:30:07 Outpatient SFA [facility] [id number] Jose Crockett Jake 2023-03-28 12:18:00 2023-03-28 15:33:00 Emergency X CODY BECKWITH [facility] ERT [id number] [facility] 2023-03-28 12:18:00 2023-03-28 15:33:00 Emergency Cody Beckwith [facility] [id number] [facility] 2023-03-27 08:51:00 2023-03-27 09:19:00 Emergency X MARCIA RODRIGEZ [facility] ERT [id number] [facility] 2023-03-27 08:51:00 2023-03-27 09:19:00 Emergency Marcia Rodrigez [facility] [id number] [facility] 2023-03-01 08:26:09 2023-03-01 08:26:09 Outpatient [facility] [id number] Jose Joseph 2023-02-03 09:04:51 2023-02-03 09:04:51 Outpatient [facility] [id number] Jose Joseph 2022-12-29 08:22:29 2022-12-29 08:22:29 Outpatient [facility] [id number] Jose Joseph 2022-12-24 10:38:43 2022-12-24 10:38:43 Outpatient [facility] [id number] Jose Joseph 2022-12-23 15:03:43 2022-12-23 15:03:43 Outpatient [facility] [id number] Jose Joseph Results Test Description Test Time Test Comments Results Result Co mments Source [facility] [id number] 04:32:25* Test Item Value Reference Range Interpretation Comme nts NT-proBNP (test code = 56914-2) 87 pg/mL <=125 Lab Interpretation (test cod e = 76194-6) Normal [facility] (39039)2024-08-29 04:23:23* Test Item Value Reference Range Interpretation Comme nts NA (test code = 2171347679) 142 mmol/L 135-145 K (test code = 0544981187) 4.1 mmol/L 3.5-5.0 CL (test code = 3513986453) 109 mmol/L 98-108 H CO2 TOTAL (test code = 0149241385) 24 mmol/L 23-31 AGAP (test code = 2237632205) 9 2-16 BUN (test code = 8776772844) 16 mg/dL 7-23 GLUCOSE (test code = 1715893287) 107 mg/dL 70-110 CREATININE (test code = 2160-0) 0.59 mg/dL 0.50-1.04 TOTAL BILI (test code = 0509778322) 0.3 mg/dL 0.1-1.1 CALCIUM (test code = 0655005899) 9.8 mg/dL 8.6-10.6 T PROTEIN (test code = 1378125779) 7.9 g/dL 6.3-8.2 ALBUMIN (test code = 5346128766) 4.9 g/dL 3.5-5.0 ALK PHOS (test code = 0626802203) 63 U/L 34-122 ALTv (test code = 1742-6) 30 U/L 5-35 AST(SGOT) (test code = 3896104777) 30 U/L 13-40 eGFR (test code = 05451-3) 113.4 mL/min/1.73m2 CKD-EPI eGFR (2020). Assuming creatinine has been stable day-to-day for at least three months, the eGFR indicates Category G1 (>= 90 mL/min/1.73 m2) Lab Interpretation (test code = 36562-2) [facility]normal [facility] 04:23:07* Test Item Value Reference Range Interpretation Comme nts LIPASE (test code = 3427057350) 279 U/L 0-220 H Lab Interpretation (test cod e = 66846-8) Abnormal [facility] with [id number] 04:14:45* Test Item Value Reference Range Interpretation Comme nts WBC (test code = 6690-2) 12.48 4.30-11.10 H RBC (test code = 789-8) 4.59 3.93-5.25 HGB (test code = 718-7) 13.9 g/dL 11.6-15.0 HCT (test code = 4544-3) 41.6 % 35.7-45.2 MCV (test code = 787-2) 90.6 fL 80.6-95.5 MCH (test code = 785-6) 30.3 pg 25.9-32.8 MCHC (test code = 786-4) 33.4 g/dL 31.6-35.1 RDW-SD (test code = 11549-6) 44.9 fL 39.0-49.9 RDW-CV (test code = 788-0) 13.6 % 12.0-15.5 PLT (test code = 777-3) 414 166-358 H MPV (test code = 66622-9) 11.4 fL 9.5-12.9 NRBC/100 WBC (test code = 2959347133) 0.0 0.0-10.0 NRBC x10^3 (test code = 7285095791) See_Comment [Automated messa ge] The system which generated this result transmitted reference range: 10*3/?L. The reference range was not used to interpret this result as normal/abnormal. GRAN MAT (NEUT) % (test code = 770-8) 64.5 % IMM GRAN % (test code = 5575168686) 0.60 % LYMPH % (test code = 736-9) 27.1 % MONO % (test code = 5905-5) 6.2 % EOS % (test code = 713-8) 1.0 % BASO % (test code = 706-2) 0.6 % GRAN MAT x10^3(ANC) (test code = 7560927373) 8.07 10*3/uL 1.88-7.09 H IMM GRAN x10^3 (test code = 5011813152) 0.07 10*3/uL 0.00-0.06 H LYMPH x10^3 (test code = 731-0) 3.38 10*3/uL 1.32-3.29 H MONO x10^3 (test code = 742-7) 0.77 10*3/uL 0.33-0.92 EOS x10^3 (test code = 711-2) 0.12 10*3/uL 0.03-0.39 BASO x10^3 (test code = 704-7) 0.07 10*3/uL 0.01-0.07 Lab Interpretation (test code = 63076-6) [facility] [id number] 04:00:00* Test Item Value Reference Range Interpretation Comme nts POCT PREG (test code = 1605) Negative On board controls acceptable with C Line (test code = 3574) Yes Lab Interpretation (test cod e = 00808-1) Normal [facility] METABOLIC PANEL (NA, K, CL, CO2, GLUCOSE, BUN, CREATININE, CA)2023-03-28 18:32:30* Test Item Value Reference Range Interpretation Comme nts NA (test code = 5856353516) 139 mmol/L 135-145 K (test code = 1172776457) 4.5 mmol/L 3.5-5.0 CL (test code = 0770566491) 106 mmol/L 98-108 CO2 TOTAL (test code = 5447121550) 22 mmol/L 23-31 L AGAP (test code = 1434825372) 11 2-16 BUN (test code = 4762020069) 11 mg/dL 7-23 GLUCOSE (test code = 7493167530) 117 mg/dL 70-110 H CREATININE (test code = 9452257828) 0.47 mg/dL 0.50-1.04 L CALCIUM (test code = 6926307860) 9.2 mg/dL 8.6-10.6 eGFR (test code = 7107016001) 144.0 mL/min/1.73m2 ADDISON (test code = ADDISON) Association of Glomerular Filtration Rate (GFR) and Staging of Kidney Disease* + --+ --+ ------+| GFR (mL/min/1.73 m2) ?| With Kidney Damage ?| ?Without Kidney Damage+ --------+ --------+ +| ?>90 ?| ?Stage one ?| ? Normal ?+ ---+ ---+ -------+| ?60-89 ?| ?Stage two ?| ? Decreased GFR ? + --+ --+ ------+| ?30-59 ?| ?Stage three ?| ? Stage three ? + --+ --+ ------+| ?15-29 ?| ?Stage four ? | ? Stage four ?+ ---+ ---+ -------+| ?<15 (or dialysis) ? ?| ?Stage five ? | ? Stage five ?+ ---+ ---+ -------+ *Each stage assumes the associated GFR level has been in effect for at least three months. ?Stages 1 to 5, with or without kidney disease, indicate chronic kidney disease. Notes: Determination of stages one and two (with eGFR >59mL/min/1.73 m2) requires estimation of kidney damage for at least three months as defined by structural or functional abnormalities of the kidney, manifested by either:Pathological abnormalities or Markers of kidney damage (including abnormalities in the composition of the blood or urine or abnormalities in imaging tests). Lab Interpretation (test code = 98953-2) Abnormal [facility] WITH [id number] 18:24:29* Test Item Value Reference Range Interpretation [...] 33.7 g/dL 31.6-35.1 RDW-SD (test code = 74648-9) 43.6 fL 39.0-49.9 RDW-CV (test code = 788-0) 13.3 % 12.0-15.5 PLT (test code = 777-3) 320 See_Comment [Automated message] The system which generated this result transmitted reference range: 166 - 358 10*3/?L. The reference range was not used to interpret this result as normal/abnormal. MPV (test code = 17686-0) 11.1 fL 9.5-12.9 NRBC/100 WBC (test code = 8427481648) 0.0 See_Comment [Automated message] The system which generated this result transmitted reference range: 0.0 - 10.0 /100 WBCs. The reference range was not used to interpret this result as normal/abnormal. NRBC x10^3 (test code = 1147166953) See_Comment [Automated message] The system which generated this result transmitted reference range: 10*3/?L. The reference range was not used to interpret this result as normal/abnormal. GRAN MAT (NEUT) % (test code = 770-8) 76.2 % IMM GRAN % (test code = 6641352323) 0.50 % LYMPH % (test code = 736-9) 13.3 % MONO % (test code = 5905-5) 7.3 % EOS % (test code = 713-8) 2.2 % BASO % (test code = 706-2) 0.5 % GRAN MAT x10^3(ANC) (test code = 9261681982) 11.69 10*3/uL 1.88-7.09 H IMM GRAN x10^3 (test code = 8390443819) 0.07 10*3/uL 0.00-0.06 H LYMPH x10^3 (test code = 731-0) 2.04 10*3/uL 1.32-3.29 MONO x10^3 (test code = 742-7) 1.11 10*3/uL 0.33-0.92 H EOS x10^3 (test code = 711-2) 0.33 10*3/uL 0.03-0.39 BASO x10^3 (test code = 704-7) 0.07 10*3/uL 0.01-0.07 Lab Interpretation (test code = 10665-7) [facility] 06:04:13* Test Item Value Reference Range Interpretation Comme nts NOTE: (test code = 998) (NOTE) IN ACCORDANCE WI FEDERAL GUIDELINES REQUIRING ALL VERBAL REQUESTS FOR LABORATORY TESTS TO BE ACCOMPANIED BY WRITTEN AUTHORIZATION WITHIN 30 DAYS OF THIS REQUEST, PLEASE SIGN BELOW AND RETURN A COPY OF THIS REPORT BY FAX TO THE LABORATORY SCANNING DEPARTMENT AT [phone]. PHYSICIAN'S SIGNATURE DATE UNLESS OTHERWISE INDICATED, ALL TESTING PERFORMED AT [facility] [address] [place] [address] [employer]PER[employer] ENGINEER: ANAYA PHILLIPS M.D. [place] NUMBER [id number] [facility] [place]. [id number] HEMOGLOBIN [id number] 22:10:58* Test Item Value Reference Range Interpretation Comme nts HEMOGLOBIN A1c (test code = 97763) 6.0 % 4.2-5.6 H [employer] GUIDELINES FOR HGB A1C: [...] ALTERNATE TESTING OR LABORATORY CONSULTATION. COMPREHENSIVE METABOLIC [id number] 06:44:46* Test Item Value Reference Range Interpretation Comme nts GLUCOSE (test code = 2217) 145 MG/DL 70-99 H BUN (test code = 2208) 10 MG/DL 6-20 CREATININE (test code = 2214) 0.59 MG/DL 0.60-1.30 L eGFR (2020 CKD-EPI) (test code = 04907) 114 ML/MIN/1.73 >60 CALC BUN/CREAT (test code = 2235) 17 RATIO 6-28 SODIUM (test code = 2231) 139 MEQ/L 133-146 POTASSIUM (test code = 2228) 4.2 MEQ/L 3.5-5.4 CHLORIDE (test code = 2215) 101 MEQ/L 95-107 CARBON DIOXIDE (test code = 2206) 22 MEQ/L 19-31 CALCIUM (test code = 2209) 9.8 MG/DL 8.5-10.5 PROTEIN, TOTAL (test code = 2229) 6.6 G/DL 6.1-8.3 ALBUMIN (test code = 2201) 4.4 G/DL 3.5-5.2 CALC GLOBULIN (test code = 2240) 2.2 G/DL 1.9-3.7 CALC A/G RATIO (test code = 2234) 2.0 RATIO 1.0-2.6 BILIRUBIN, TOTAL (test code = 2207) <0.2 MG/DL See_Comment [Automated me ssage] The system which generated this result transmitted reference range: <=1.2. The reference range was not used to interpret this result as normal/abnormal. ALKALINE PHOSPHATASE (test code = 2204) 69 U/L 40-115 AST (test code = 2218) 14 U/L 9-40 ALT (test code = 2219) 16 U/L 5-40 HEPATITIS PANEL, [id number] 04:18:51* Test Item Value Reference Range Interpretation Comme nts HEPATITIS A IgM (test code = 39187) NON-REACTIVE NON-REACTIVE HEPATITIS B CORE IgM (test code = 4644) NON-REACTIVE NON-REACTIVE HEPATITIS B SURF AG (test code = 2739) NON-REACTIVE NON-REACTIVE HEPATITIS C ANTIBODY (test code = 4675) NON-REACTIVE NON-REACTIVE INTERPRETATION HEPATITIS A: (test code = 2552) (NOTE) Hepatitis A serology shows no evidence of acute hepatitis A. INTERPRETATION HEPATITIS B: (test code = 24171) (NOTE) Hepatitis B serology shows no evidence of acute hepatitis B andno indication of exposure to hepatitis B virus in the previous carla eight months. INTERPRETATION HEPATITIS C: (test code = 95570) (NOTE) Hepatitis C serology shows no evidence of exposure to hepatitisC virus at this time. It can take up to 12 months after exposure tothe hepatitis C virus for antibodies to become detectable in the blood in certain patients. HIV 1/2 4TH GEN, RFLX [id number] 04:18:51* Test Item Value Reference Range Interpretation Comme nts HIV 1/2 4TH GEN, RFLX CONF (test code = 3514) NON-REACTIVE NON-REACTIVE UNLESS OTHERWISE INDICATED, ALL TESTING PERFORMED AT [facility] [address] [place] [address] [employer]PER[employer] ENGINEER: ANAYA PHILLIPS M.D. CLIA NUMBER [id number] [place]. [id number] CBC W/AUTO DIFF WITH [id number] 02:14:13* Test Item Value Reference Range Interpretation [...] = 1065) 0.0 /100 WBC'S See_Comment [Automated [employer] ge] The system which generated this result [...] 0.00-0.10 ABS NUCLEATED RBCS (test code = 73535) 0.00 K/UL 0.00-0.11"
[2024-09-23 23:39] LABS: Absolute Basophils 0.1 K/uL (0-0.5); Absolute Lymphocytes (CBC) 2.5 K/uL (0.7-4.9); Absolute Monocytes 0.7 K/uL (0.1-1.3); Absolute Neutrophil 8.9 K/uL (1.8-8.0); Basophils % 0.6 % (0-1.3); Eosinophils % 0.2 % (0-4.4); Hematocrit 39.9 % (36.0-45.0); Lymphocytes % 20.3 % (15.3-44.8); MCH 29.4 pg (27.0-35.0); MCHC 32.6 g/dL (32.0-36.0); MCV 90.1 fL (80-100); MPV 9.2 fL (7.6-11.3); Monocytes % 5.7 % (3.3-12.3); Neutrophils % 73.2 % (41.7-73.7); Platelets 377 thou/uL (152-406); RBC Red Blood Cell Count 4.43 M/uL (3.86-4.86); Red Cell Distribution Width 14.3 % (12.1-15.2)
[2024-09-23 23:43] LABS: PT Prothrombin Time 11.3 SECONDS (9.4-12.5); PTT, Activated Partial Thromb 31.1 SECONDS (24.3-36.9); Protime INR 1.01
[2024-09-23 23:56] LABS: Specific Gravity 1.015 (1.005-1.030); Urine Bacteria 20-50 /HPF (<20); Urine Bilirubin NEGATIVE (Negative); Urine Blood 1+ (Negative); Urine Clarity Extremely Turbid (Clear); Urine Color Light-Yellow (Yellow); Urine Culture Reflex Order NOT NEEDED; Urine Glucose NEGATIVE (Negative); Urine Ketones NEGATIVE (Negative); Urine Microscopic Reflex YN ORDER UMIC; Urine Mucus Slight /HPF (None Seen); Urine Nitrite 2+ (Negative); Urine Protein 1+ (Negative); Urine RBC <5 /HPF (None Seen); Urine Urobilinogen Normal (Normal); Urine pH 5.5 (5.0-7.0)
[2024-09-23 23:57] LABS: Specific Gravity 1.015 (1.005-1.030)
[2024-09-23 23:58] LABS: ALT/SGPT 31 U/L (13-56); AST/SGOT 17 U/L (15-37); Albumin 3.8 g/dL (3.4-5.0); Alkaline Phosphatase 78 U/L (45-117); Anion Gap 10.7 mEq/L (5.0-15.0); BUN Blood Urea Nitrogen 11 mg/dL (7-18); Bicarbonate 23 mEq/L (21-32); Bilirubin Direct < 0.2 mg/dL (0-0.2); Bilirubin Total 0.2 mg/dL (0.2-1.0); Globulin 3.9 g/dL (2.3-3.5); Glomerular Filtration Rate 114 ml/min (=/>90); Glucose Level 114 mg/dL (74-106); Potassium 3.7 mEq/L (3.5-5.1); Protein, Total 7.7 g/dL (6.4-8.2); Sodium Level 140 mEq/L (136-145)
[2024-09-24 00:04] LABS: Barbiturates NEGATIVE (NEGATIVE); Benzodiazepines NEGATIVE (NEGATIVE); Cocaine NEGATIVE (NEGATIVE); METHAMPHETAM NEGATIVE (NEGATIVE); Methadone NEGATIVE (NEGATIVE); Opiates NEGATIVE (NEGATIVE); Phencyclidine NEGATIVE (NEGATIVE); THC Cannibis NEGATIVE (NEGATIVE)
[2024-09-24] MEDS ORDERED: IBUPROFEN 400 MG TAB ONE (00:22)
[2024-09-24] MEDS ORDERED: CIPROFLOXACIN HCL 500 MG TAB ONE (00:22)
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
[2024-09-24 01:41] VITALS: BP 137/74; TEMP 98; O2SAT 99
== END 2024-09-24 01:34 | disposition home or self-care (01) ==
LOC: ER 22:49
DX: R45.851 Suicidal ideations (principal); N39.0 Urinary tract infection, site not specified
CPT/HCPCS: 36415; 70450; 71250; 72125; 74176; 80048; 80076; 80143; 80179; 80307; 81001; 81025; 82077; 85025; 85610; 85730; 99284

== ENCOUNTER 2025-01-23 19:10 | Emergency (ER) | payer SELFPAY ==
--- OUTSIDE RECORDS SUMMARY | 2025-01-23 19:21 | XMS REPORT | Continuity of Care Document ---
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 PPO/POS [id number] 2014 00:00:00 Allergies, Adverse Reactions, Alerts Allergy Name Allergy Type Status Severity Reaction(s) Onset Date Inactive Date Treating Clinician Comments Source LIDOCAIN E DRUG INGREDI Active Swelling 2023-10 00:00: 00 [facility] Lidocain e Propensi ty to adverse reaction s Active Swelling 2023-10 00:00: 00 [facility] NO KNOWN ALLERGIE S Drug Class Active [facility] Social History Social Habit Start Date Stop Date Quantity Comments Source Sexual orientation [facility] Sex assigned at 1980 00:00:00 1980 00:00:00 [facility] Smoking Status Start Date Stop Date Source Tobacco smoking consumption unknown [facility] Medications Ordered Medication Name Filled Medication Name Start Date Stop Date Current Medication? Ordering Clinician Indication Dosage Frequency Signature (SIG) Comments Components Source nitroglycer in (NITROSTAT) sublingual tablet 0.4 mg 2023-10 05:15: 00 08-29 05:13 :00 No .4mg 0.4 mg, Sublingual , ONCE, 1 dose, On Tue08/28/24 at 2315, JOSE LUIS [facility] aspirin tablet 325 mg 2023-10 05:15: 00 08-29 05:13 :00 No 325mg 325 mg, Oral, ONCE, 1 dose, On Tue08/28/24 at 2315, STAT [facility] iopamidol (ISOVUE 370-500 mL) injection 80 mL 2023-10 05:15: 00 08-29 05:15 :00 No [id number] 80mL 80 mL, Intravenou s, ONCE, 1 dose, On Tue08/28/24 at 2315, Routine [facility] alum-mag hydroxide-s imeth (MAG-AL PLUS) 200-200-20 mg/5 mL suspension 30 mL 2023-10 05:15: 00 08-29 05:15 :00 No 30mL 30 mL, Oral, ONCE, 1 dose, On Tue08/28/24 at 2315, JOSE LUIS [facility] ondansetron (ZOFRAN (PF)) injection 4 mg 2023-10 04:15: 00 08-29 04:10 :00 No 4mg 4 mg, Slow IV Push, ONCE, 1 dose, On Tue08/28/24 at 2215, Administer over 2-5 Minutes, 2 mL [facility] NaCl 0.9% (NS) bolus infusion 1,000 mL 2023-10 04:00: 00 08-29 05:39 :00 No 1000mL at 999 mL/hr, 1,000 mL, IV Infusion, ONCE, 1 dose, On Tue08/28/24 at 2200, STAT [facility] meclizine (TRAVEL-EAS E (MECLIZINE) ) tablet 50 mg 2023-10 04:00: 00 08-29 04:03 :00 No 50mg 50 mg, Oral, ONCE, 1 dose, On Tue08/28/24 at 2200, JOSE LUIS [facility] meclizine 25 mg tablet 2023-10 00:00: 00 Yes [id number] 25mg Take 1 tablet by mouth 3 (three) times daily as needed for Dizziness for up to 15 doses. [facility] ondansetron 4 mg disintegrat ing tablet 2023-10 00:00: 00 Yes [id number] 4mg Take 1 tablet by mouth every 8 (eight) hours as needed for Nausea and Vomiting (N/V) for up to 10 doses. [facility] aspirin 81 mg chewable tablet 2023-10 00:00: 00 09-28 05:59 :00 No [id number] 81mg Take 1 tablet by mouth in the morning for 30 doses. [facility] morpHINE (4 mg/mL) injection 4 mg 03-28 20:15: 00 03-28 20:25 :00 No 4mg 4 mg, Slow IV Push, ONCE, 1 dose, On Tue03/28/23 at 1515, Routine [facility] iopamidol (ISOVUE 370-500 mL) injection 80 mL 03-28 19:30: 00 03-28 19:30 :00 No [id number] 80mL 80 mL, Intravenou s, ONCE, 1 dose, On Tue03/28/23 at 1430, Routine [facility] ondansetron (ZOFRAN (PF)) injection 4 mg 03-28 18:45: 00 03-28 18:02 :00 No 4mg 4 mg, Slow IV Push, ONCE, 1 dose, On Tue03/28/23 at 1345, JOSE LUIS [facility] morpHINE (4 mg/mL) injection 4 mg 03-28 17:45: 00 03-28 18:01 :00 No 4mg 4 mg, Slow IV Push, ONCE, 1 dose, On Tue03/28/23 at 1245, Routine [facility] ampicillin- sulbactam (UNASYN) 3 g in NaCl 0.9% (NS) 100 mL MINI-BAG 03-28 17:45: 00 03-28 18:15 :00 No 3g 3 g, IV Piggyback, ONCE, 1 dose, On Tue03/28/23 at 1245, Administer over 30 Minutes, 100 mL
Reas on for Anti-Infec tive: Empiric Therapy for Suspected Infection< br>Empiric Therapy Site: HEENT
D uration of therapy: 72 hours [facility] proMETHazin e 25 mg tablet 03-28 00:00: 00 Yes [id number] 12.5mg Take 0.5 tablets by mouth every 6 (six) hours as needed for Nausea and Vomiting (N/V). [facility] amoxicillin -clavulanat e 875-125 mg per tablet 03-28 00:00: 00 04-08 04:59 :00 No [id number] 1{tbl} Take 1 tablet by mouth every 12 (twelve) hours for 10 days. [facility] HYDROcodone -acetaminop hen 5-325 mg tablet 03-28 00:00: 00 04-05 04:59 :00 No [id number] 1{tbl} Take 1 tablet by mouth every 6 (six) hours as needed for Pain (scale 7-10) for up to 7 days. Indication s: acute pain [facility] clindamycin (CLEOCIN HCL) capsule 300 mg 03-27 14:45: 00 03-27 14:09 :00 No 300mg 300 mg, Oral, ONCE, 1 dose, On Tue03/27/23 at 0945, JOSE LUIS
Re ason for Anti-Infec tive: Empiric Therapy for Suspected Infection< br>Empiric Therapy Site: HEENT
D uration of therapy: 5 days
Re stricted use approved by: ED PROVIDER [facility] chlorhexidi ne 0.12 % mouthwash 03-27 00:00: 00 Yes [id number] 15mL Swish and spit out 15 mL in the morning and 15 mL in the evening. [facility] chlorhexidi ne 0.12 % mouthwash 03-27 00:00: 00 Yes [id number] 15mL Swish and spit out 15 mL in the morning and 15 mL in the evening. [facility] clindamycin 150 mg capsule 03-27 00:00: 00 04-04 04:59 :00 No [id number] 450mg Take 3 capsules by mouth in the morning and 3 capsules at noon and 3 capsules in the evening. Do all this for 7 days. [facility] Vital Signs Vital Name Observation Time Observation Value Comments S ource Systolic blood pressure 2024-08-29 05:00:00 134 mm[Hg] [facility] Diastolic blood pressure 2024-08-29 05:00:00 72 mm[Hg] [facility] Heart rate 2024-08-29 05:00:00 72 /[facility] Body temperature 2024-08-29 05:00:00 36.89 Jazlyn [facility] Respiratory rate 2024-08-29 05:00:00 22 /min [facility] Oxygen saturation in Arterial blood by Pulse oximetry 2024-08-29 05:00:00 98 /min [facility] Body height 2024-08-29 03:15:00 157.5 cm [facility] Body weight 2024-08-29 03:15:00 61.236 kg [facility] BMI 2024-08-29 03:15:00 24.69 kg/m2 [facility] Systolic blood pressure 2023-03-28 19:52:00 121 mm[Hg] [facility] Diastolic blood pressure 2023-03-28 19:52:00 75 mm[Hg] [facility] Heart rate 2023-03-28 19:52:00 75 /min [facility]ive [facility] Respiratory rate 2023-03-28 19:52:00 16 /min [facility] Oxygen saturation in Arterial blood by Pulse oximetry 2023-03-28 19:52:00 95 /min [facility] Body temperature 2023-03-28 17:17:00 37.11 [facility] Body weight 2023-03-28 17:17:00 68.04 kg [facility] BMI 2023-03-28 17:17:00 27.44 kg/m2 [facility] Systolic blood pressure 2023-03-27 13:48:00 108 mm[Hg] [facility] Diastolic blood pressure 2023-03-27 13:48:00 78 mm[Hg] [facility] Heart rate 2023-03-27 13:48:00 94 /min [facility] Body temperature 2023-03-27 13:48:00 37.11 [facility] Respiratory rate 2023-03-27 13:48:00 16 /min [facility] Body height 2023-03-27 13:48:00 157.5 cm [facility] Body weight 2023-03-27 13:48:00 68.04 kg [facility] BMI 2023-03-27 13:48:00 27.44 kg/m2 [facility] Oxygen saturation in Arterial blood by Pulse oximetry 2023-03-27 13:48:00 95 /min [facility] Procedures Procedure Date / Time Performed Performing Clinicia n Source POCT TEST 2024-08-29 04:00:00 Asa Fernandez [facility] LIPASE 2024-08-29 03:58:00 Raffi Fernandez [facility] TROPONIN I 2024-08-29 03:58:00 Raffi Fernandez [facility] COMP. METABOLIC PANEL ([id number]) 2024-08-29 03:58:00 Raffi Fernandez [facility] CBC WITH DIFF 2024-08-29 03:58:00 [facility] 2024-08-29 03:58:00 Raffi Fernandez [facility] CT MAXILLOFACIAL/MANDIBLE W CONTRAST 2023-03-28 18:34:15 Cody Beckwith [facility] BASIC METABOLIC PANEL (NA, K, CL, CO2, GLUCOSE, BUN, CREATININE, CA) 2023-03-28 18:05:00 Cody Beckwith [facility] CBC WITH DIFF 2023-03-28 18:05:00 [facility]ATMENT 2023-03-28 17:11:19 Doctor Unassigned, [place] [facility] ASSIGNMENT OF BENEFITS 2023-03-27 14:15:01 Docto r Unassigned, [place] [facility] CONSENT/REFUSAL FOR DIAGNOSIS AND TREATMENT 2023-03-27 13:38:19 Doctor Unassigned, [place] [facility] Encounters Start Date/Time End Date/Time Encounter Type Admission Type Attending [facility] Care Department Encounter ID Source 2024-08-28 21:16:00 2024-08-28 23:40:00 Emergency X RAFFI FERNANDEZ [facility] ERT [id number] [facility] 2024-08-28 21:16:00 2024-08-28 23:40:00 Emergency Raffi Fernandez LAMIR AT COUNTS INCLUDE 234 BEDS AT [facility] [id number] [id number] [id number] [facility] 2023-04-04 13:30:07 2023-04-04 13:30:07 Outpatient [facility] [id number] Jose Crockett Jake 2023-03-28 12:18:00 2023-03-28 15:33:00 Emergency X CODY BECKWITH [facility] ERT [id number] [facility] 2023-03-28 12:18:00 2023-03-28 15:33:00 Emergency Cody Beckwith [facility] [id number] [id number] [id number] [id number] [facility] 2023-03-27 08:51:00 2023-03-27 09:19:00 Emergency X CHANTE RODRIGEZ [facility] ERT [id number] [facility] 2023-03-27 08:51:00 2023-03-27 09:19:00 Emergency Chante Rodrigez [facility] [id number] [id number] [id number] [id number] [facility] 2023-03-01 08:26:09 2023-03-01 08:26:09 Outpatient [facility] [id number] Jose Joseph 2023-02-03 09:04:51 2023-02-03 09:04:51 Outpatient [facility] [id number] Jose Joseph 2022-12-29 08:22:29 2022-12-29 08:22:29 Outpatient [facility] [id number] Jose Joseph 2022-12-24 10:38:43 2022-12-24 10:38:43 Outpatient [facility] [id number] Jose Joseph 2022-12-23 15:03:43 2022-12-23 15:03:43 Outpatient [facility] [id number] Jose Joseph Results Test Description Test Time Test Comments Results Result Co mments Source [facility] [id number] 04:32:25* Test Item Value Reference Range Interpretation Comme nts NT-proBNP (test code = 10936-7) 87 pg/mL <=125 Lab Interpretation (test cod e = 23551-5) Normal [facility] Met[facility] Panel (14572)2024-08-29 04:23:23* Test Item Value Reference Range Interpretation Comme nts NA (test code = 7338631730) 142 mmol/L 135-145 K (test code = 8455219891) 4.1 mmol/L 3.5-5.0 CL (test code = 5737470081) 109 mmol/L 98-108 H CO2 TOTAL (test code = 3920359303) 24 mmol/L 23-31 AGAP (test code = 4578648351) 9 2-16 BUN (test code = 4317892765) 16 mg/dL 7-23 GLUCOSE (test code = 2423481044) 107 mg/dL 70-110 CREATININE (test code = 2160-0) 0.59 mg/dL 0.50-1.04 TOTAL BILI (test code = 6874624611) 0.3 mg/dL 0.1-1.1 CALCIUM (test code = 5268302771) 9.8 mg/dL 8.6-10.6 T PROTEIN (test code = 8808509680) 7.9 g/dL 6.3-8.2 ALBUMIN (test code = 6994959595) 4.9 g/dL 3.5-5.0 ALK PHOS (test code = 9323887162) 63 U/L 34-122 ALTv (test code = 1742-6) 30 U/L 5-35 AST(SGOT) (test code = 8912665335) 30 U/L 13-40 eGFR (test code = 07641-1) 113.4 mL/min/1.73m2 CKD-EPI eGFR (2020). Assuming creatinine has been stable day-to-day for at least three months, the eGFR indicates Category G1 (>= 90 mL/min/1.73 m2) Lab Interpretation (test code = 28992-0) Abnormal [facility]2024-[facility]-27 04:23:07* Test Item Value Reference Range Interpretation Comme nts LIPASE (test code = 5479991060) 279 U/L 0-220 H Lab Interpretation (test cod e = 46169-5) Abnormal [facility] with [id number] 04:14:45* Test Item Value Reference Range Interpretation [...] 33.4 g/dL 31.6-35.1 RDW-SD (test code = 94910-8) 44.9 fL 39.0-49.9 RDW-CV (test code = 788-0) 13.6 % 12.0-15.5 PLT (test code = 777-3) 414 166-358 H MPV (test code = 21036-3) 11.4 fL 9.5-12.9 NRBC/100 WBC (test code = 0323340072) 0.0 0.0-10.0 NRBC x10^3 (test code = 4153013205) See_Comment [Automated messa ge] The system which generated this result transmitted reference range: 10*3/?L. The reference range was not used to interpret this result as normal/abnormal. GRAN MAT (NEUT) % (test code = 770-8) 64.5 % IMM GRAN % (test code = 3407141399) 0.60 % LYMPH % (test code = 736-9) 27.1 % MONO % (test code = 5905-5) 6.2 % EOS % (test code = 713-8) 1.0 % BASO % (test code = 706-2) 0.6 % GRAN MAT x10^3(ANC) (test code = 9316682795) 8.07 10*3/uL 1.88-7.09 H IMM GRAN x10^3 (test code = 4549963603) 0.07 10*3/uL 0.00-0.06 H LYMPH x10^3 (test code = 731-0) 3.38 10*3/uL 1.32-3.29 H MONO x10^3 (test code = 742-7) 0.77 10*3/uL 0.33-0.92 EOS x10^3 (test code = 711-2) 0.12 10*3/uL 0.03-0.39 BASO x10^3 (test code = 704-7) 0.07 10*3/uL 0.01-0.07 Lab Interpretation (test code = 93329-1) [id number]:00* Test Item Value Reference Range Interpretation Comme nts POCT PREG (test code = 1605) Negative On board controls acceptable with C Line (test code = 3574) Yes Lab Interpretation (test cod e = 50416-9) Normal [facility] METABOLIC PANEL (NA, K, CL, CO2, GLUCOSE, BUN, CREATININE, CA)2023-03-28 18:32:30* Test Item Value Reference Range Interpretation Comme nts NA (test code = 1109380725) 139 mmol/L 135-145 K (test code = 4455447080) 4.5 mmol/L 3.5-5.0 CL (test code = 3159676664) 106 mmol/L 98-108 CO2 TOTAL (test code = 7241519481) 22 mmol/L 23-31 L AGAP (test code = 1062475095) 11 2-16 BUN (test code = 9570151046) 11 mg/dL 7-23 GLUCOSE (test code = 6150678324) 117 mg/dL 70-110 H CREATININE (test code = 6368516896) 0.47 mg/dL 0.50-1.04 L CALCIUM (test code = 5270486570) 9.2 mg/dL 8.6-10.6 eGFR (test code = 3200305223) 144.0 mL/min/1.73m2 ADDISON (test code = ADDISON) [...] imaging tests). Lab Interpretation (test code = 07135-5) Abnormal [facility] WITH [id number] 18:24:29* Test Item Value Reference Range Interpretation [...] 33.7 g/dL 31.6-35.1 RDW-SD (test code = 23792-5) 43.6 fL 39.0-49.9 RDW-CV (test code = 788-0) 13.3 % 12.0-15.5 PLT (test code = 777-3) 320 See_Comment [Automated message] The system which generated this result transmitted reference range: 166 - 358 10*3/?L. The reference range was not used to interpret this result as normal/abnormal. MPV (test code = 70181-2) 11.1 fL 9.5-12.9 NRBC/100 WBC (test code = 3571646510) 0.0 See_Comment [Automated message] The system which generated this result transmitted reference range: 0.0 - 10.0 /100 WBCs. The reference range was not used to interpret this result as normal/abnormal. NRBC x10^3 (test code = 7457668125) See_Comment [Automated message] The system which generated this result transmitted reference range: 10*3/?L. The reference range was not used to interpret this result as normal/abnormal. GRAN MAT (NEUT) % (test code = 770-8) 76.2 % IMM GRAN % (test code = 2127586067) 0.50 % LYMPH % (test code = 736-9) 13.3 % MONO % (test code = 5905-5) 7.3 % EOS % (test code = 713-8) 2.2 % BASO % (test code = 706-2) 0.5 % GRAN MAT x10^3(ANC) (test code = 4468564457) 11.69 10*3/uL 1.88-7.09 H IMM GRAN x10^3 (test code = 2686060762) 0.07 10*3/uL 0.00-0.06 H LYMPH x10^3 (test code = 731-0) 2.04 10*3/uL 1.32-3.29 MONO x10^3 (test code = 742-7) 1.11 10*3/uL 0.33-0.92 H EOS x10^3 (test code = 711-2) 0.33 10*3/uL 0.03-0.39 BASO x10^3 (test code = 704-7) 0.07 10*3/uL 0.01-0.07 Lab Interpretation (test code = 91161-6) Abnormal [facility] 06:04:13* Test Item Value Reference Range Interpretation Comme nts NOTE: (test code = 998) (NOTE) IN ACCORDANCE WI FEDERAL GUIDELINES REQUIRING ALL VERBAL REQUESTS FOR LABORATORY TESTS TO BE ACCOMPANIED BY WRITTEN AUTHORIZATION WITHIN 30 DAYS OF THIS REQUEST, PLEASE SIGN BELOW AND RETURN A COPY OF THIS REPORT BY FAX TO THE LABORATORY SCANNING DEPARTMENT AT [phone]. PHYSICIAN'S SIGNATURE DATE UNLESS OTHERWISE INDICATED, ALL TESTING PERFORMED AT [facility] [employer] [address] [place] [address] DYE ROOM HELPER: ANAYA PHILLIPS M.D. [place] NUMBER [id number] [facility] [place]. [id number] HEMOGLOBIN [id number] 22:10:58* Test Item Value Reference Range Interpretation Comme nts HEMOGLOBIN A1c (test code = 82638) 6.0 % 4.2-5.6 H [employer] GUIDELINES FOR HGB A1C: [...] ALTERNATE TESTING OR LABORATORY CONSULTATION. COMPREHENSIVE METABOLIC [id number] 06:44:46* Test Item Value Reference Range Interpretation Comme nts GLUCOSE (test code = 2217) 145 MG/DL 70-99 H BUN (test code = 2208) 10 MG/DL 6-20 CREATININE (test code = 2214) 0.59 MG/DL 0.60-1.30 L eGFR (2020 CKD-EPI) (test code = 04790) 114 ML/MIN/1.73 >60 CALC BUN/CREAT (test code [...] = 2219) 16 U/L 5-40 HEPATITIS PANEL, [id number] 04:18:51* Test Item Value Reference Range Interpretation Comme nts HEPATITIS A IgM (test code = 44953) NON-REACTIVE NON-REACTIVE HEPATITIS B CORE IgM (test code = 4644) NON-REACTIVE NON-REACTIVE HEPATITIS B SURF AG (test code = 2739) NON-REACTIVE NON-REACTIVE HEPATITIS C ANTIBODY (test code = 4675) NON-REACTIVE NON-REACTIVE INTERPRETATION HEPATITIS A: (test code = 2552) (NOTE) Hepatitis A serology shows no evidence of acute hepatitis A. INTERPRETATION HEPATITIS B: (test code = 27801) (NOTE) Hepatitis B serology shows no evidence of acute hepatitis B andno indication of exposure to hepatitis B virus in the previous carla eight months. INTERPRETATION HEPATITIS C: (test code = 51916) (NOTE) Hepatitis C serology shows no evidence of exposure to hepatitisC virus at this time. It can take up to 12 months after exposure tothe hepatitis C virus for antibodies to become detectable in the blood in certain patients. HIV 1/2 4TH GEN, RFLX [id number] 04:18:51* Test Item Value Reference Range Interpretation Comme nts HIV 1/2 4TH GEN, RFLX CONF (test code = 3514) NON-REACTIVE NON-REACTIVE UNLESS OTHERWISE INDICATED, ALL TESTING PERFORMED AT [facility] [address] [place] [address] DYE ROOM HELPER: ANAYA PHILLIPS M.D. CLIA NUMBER [id number] [place]. [id number] CBC W/AUTO DIFF WITH [id number] 02:14:13* Test Item Value Reference Range Interpretation [...] = 1065) 0.0 /100 WBC'S See_Comment [Automated [employer] ge] The system which generated this result [...] 0.00-0.10 ABS NUCLEATED RBCS (test code = 26910) 0.00 K/UL 0.00-0.11 Notes Date/Time Note Provider Source 2024-08-28 23:39:26 Pt given printed and verbal discharge instructions regarding dizziness Prescriptions provided: -aspirin 81 mg chewable tablet -meclizine 25 mg tablet -ondansetron 4 mg disintegrating tablet Pt verbalized understanding of instructions, pt awake alert oriented, resp reg unlabored, skin w/d, color appropriate for race, moves all ext well,pt encouraged to follow up with pcp Advised to seek medical attention for new/prolonged/worsening of symptoms No adverse reaction to meds given in ER noted upon discharge PIV d'cd, dressing to site, catheter in tact. Awake, alert oriented, resp reg unlabored, skin w/d, pt leaving amb with steady gait, in no apparent distress [facility] 2024-08-28 23:03:15 Nurse Report Report given to ROSMERY Mota. Chief complaint, assessment findings, infusion verify and orders reviewed. GAVI BATES RN [facility] Gavi Bates RN [facility] 2024-08-28 21:12:13 C/o feeling dizzy, heart palpitations, pain between her shoulder blades, chest pain States she just does not feel right and feels like she is going to pass out Symptoms began 1 hour ago [facility] 2024-08-28 21:06:00 [facility] Emergency Department Note Patient Name: Katherin Chin Date of : 1980 44 year old female Treatment Room: TX3/TX3 Primary Care Physician: Cody Danielle Patient Escorted by: Self [9] Mode of Arrival: Personal means [1] EMS Treatment Prior to ED 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 PT states she did not take anything for symptoms. PT states room feels like it is spinning. PT had episode of vomiting in the ED. Past Medical History/Immunizations: No past medical history on file. Tetanus received in last 5 years: Unknown Childhood immunizations: Up-to-date Allergies: Allergies Allergen Reactions Lidocaine Swelling Past Social History: Substance & Sexual Activity No substance use or sexual activity history on file. Past Surgical History: No past surgical history on file. Review of Systems: Review of Systems Constitutional: Negative for fever. HENT: Negative for voice change. Respiratory: Positive for chest tightness. Cardiovascular: Positive for chest pain. Gastrointestinal: Positive for nausea and vomiting. Skin: Positive for wound. Neurological: Positive for dizziness. Psychiatric/Behavioral: Negative for confusion. Physical Exam: ED Triage Vitals [08/28/242114] Weight 61.2 kg (135 lb) Actual or estimated Actual Height 1.575 m (5' 2") BP (!) 151/117 Pulse 78 Resp 17 Temp 37 ?C (98.6 ?F) Temp source Oral SpO2 98 % Measured on Room air Physical Exam Vitals and nursing note reviewed. Constitutional: Appearance: Normal appearance. HENT: Head: Normocephalic. Mouth/Throat: Comments: No facial asymmetry Eyes: Extraocular Movements: Extraocular movements intact. Cardiovascular: Rate and Rhythm: Normal rate. Pulmonary: Effort: Pulmonary effort is normal. Musculoskeletal: General: Normal range of motion. Neurological: General: No focal deficit present. Mental Status: She is alert and oriented to person, place, and time. Comments: Neg pronator drift, neuro grossly intact Psychiatric: Mood and Affect: Mood normal. Behavior: Behavior normal. Radiology: CT ANGIOGRAM CHEST Preliminary Result IMAGES REVIEWED: CT ANGIOGRAM CHEST COMPARISON: CLINICAL INDICATION: Presented with dizziness, palpitations and chest pain that started one hour ago. TECHNIQUE: Multidetector CT angiogram examination of the chest and upper abdomen was acquired after the intravenous injection of iodine contrast. Multiplanar reformations in the sagittal and coronal plane and 3D volume rendered images were provided, performed at a separate workstation. Findings: AORTA AND CARDIOVASCULAR FINDINGS: The aortic valve is three leaflet without thickening. The thoracic aorta normal in caliber and course. No intimal flap, intramural hematoma, wall irregularity or extravasation. The aortic arch branches, coronary arteries and intraabdominal aortic branches are unremarkable. The opacification of the pulmonary artery is normal in caliber without filling defects. The cardiac chambers are normal in size. No pericardial abnormality is detected. CHEST: The thyroid and central airways and esophagus are normal in appearance. No evidence of adenopathy within the chest. The lungs are well expanded and clear. No focal lesions identified. No pleural abnormality is noted. ABDOMEN: Left adrenal adenoma is visualized measuring 2.4 x 2.2 cm. Images of the upper abdomen are unremarkable. BONES AND SOFT TISSUES: Within normal limits. IMPRESSION No thoracic aortic dissection, intramural hematoma or extravasation. No acute cardiopulmonary process. Preliminary Report Dictated by Resident: Princess Isabel CT HEAD WO CONTRAST Preliminary Result EXAM: CT HEAD WO CONTRAST HISTORY: 44 years-old Female; Provided indication: dizziness . TECHNIQUE: Axial CT of the head was performed and reconstructed at 5 mm intervals. Coronal and sagittal reformatted images were generated. COMPARISON: None FINDINGS: The ventricles and cerebral sulci are normal in caliber and configuration. No midline shift or pathological extra-axial fluid collection is present. The basal cisterns are unremarkable. No acute intracranial hemorrhage or significant mass effect is visualized. No parenchymal attenuation abnormality is seen. The albarado-white matter differentiation is preserved. Partial opacification of the left maxillary sinus is visualized. The mastoid air cells and the remaining visualized paranasal air sinuses are clear. The calvarium and central skull base are unremarkable. IMPRESSION No acute intracranial hemorrhage or mass effect. Preliminary Report Dictated by Resident: Princess Isabel Lab Results: Lab Results CBC WITH DIFF - Abnormal Result Value Ref Range WBC 12.48 (*) 4.30 - 11.10 10*3/?L RBC 4.59 3.93 - 5.25 10*6/?L HGB 13.9 11.6 - 15.0 g/dL HCT 41.6 35.7 - 45.2 % MCV 90.6 80.6 - 95.5 fL MCH 30.3 25.9 - 32.8 pg MCHC 33.4 31.6 - 35.1 g/dL RDW-SD 44.9 39.0 - 49.9 fL RDW-CV 13.6 12.0 - 15.5 % PLT 414 (*) 166 - 358 10*3/?L MPV 11.4 9.5 - 12.9 fL NRBC/100 WBC 0.0 0.0 - 10.0 /100 WBCs NRBC x10 3 <0.01 10*3/?L GRAN MAT (NEUT) % 64.5 % IMM GRAN % 0.60 % LYMPH % 27.1 % MONO % 6.2 % EOS % 1.0 % BASO % 0.6 % GRAN MAT x10 3 (ANC) 8.07 (*) 1.88 - 7.09 10*3/uL IMM GRAN x10 3 0.07 (*) 0.00 - 0.06 10*3/uL LYMPH x10 3 3.38 (*) 1.32 - 3.29 10*3/uL MONO x10 3 0.77 0.33 - 0.92 10*3/uL EOS x10 3 0.12 0.03 - 0.39 10*3/uL BASO x10 3 0.07 0.01 - 0.07 10*3/uL COMP. METABOLIC PANEL (03438) - Abnormal NA 142 135 - 145 mmol/L K 4.1 3.5 - 5.0 mmol/L CL 109 (*) 98 - 108 mmol/L CO2 TOTAL 24 23 - 31 mmol/L AGAP 9 2 - 16 BUN 16 7 - 23 mg/dL GLUCOSE 107 70 - 110 mg/dL CREATININE 0.59 0.50 - 1.04 mg/dL TOTAL BILI 0.3 0.1 - 1.1 mg/dL CALCIUM 9.8 8.6 - 10.6 mg/dL T PROTEIN 7.9 6.3 - 8.2 g/dL ALBUMIN 4.9 3.5 - 5.0 g/dL ALK PHOS 63 34 - 122 U/L ALTv 30 5 - 35 U/L AST(SGOT) 30 13 - 40 U/L eGFR 113.4 mL/min/1.73m2 LIPASE - Abnormal LIPASE 279 (*) 0 - 220 U/L TROPONIN I - Normal TROPONIN I 0.004 <=0.034 ng/mL N-TERMINAL PRO-BNP - Normal NT-proBNP 87 <=125 pg/mL POCT TEST - Normal POCT PREG Negative On board controls acceptable with C Line Yes EKG: If EKG completed, see Procedure Note. Orders and Treatments: Orders Placed This Encounter Procedures CT HEAD WO CONTRAST CT ANGIOGRAM CHEST Cbc with Diff Troponin I N-Terminal Pro-Bnp Comp. Metabolic Panel (22511) Lipase POCT Test Orders Placed This Encounter Medications meclizine (TRAVEL-EASE (MECLIZINE)) tablet 50 mg NaCl 0.9% (NS) bolus infusion 1,000 mL ondansetron (ZOFRAN (PF)) injection 4 mg iopamidol (ISOVUE 370-500 mL) injection 80 mL aspirin tablet 325 mg DISCONTD: nitroglycerin (NITROL) 2 % ointment 0.5 Inch nitroglycerin (NITROSTAT) sublingual tablet 0.4 mg alum-mag hydroxide-simeth (MAG-AL PLUS) 200-200-20 mg/5 mL suspension 30 mL First Provider Eval: ED Events Date/Time Event User Comments 08/28/242142 Medical Screening Begins RAFFI FERNANDEZ MD -- 08/28/242142 First Provider Evaluation RAFFI FERNANDEZ MD -- ED COURSE ED Course as of 08/28/242317Aug 28, [id number] Pt informed of results. PT offered admission but did not want to be admitted. PT states she improved. Pt to receive asa, ntg, maalox. PT improved s/p treatment. [PB] 2208 Will obtain labs, EKG, ct chest, ct head. Pt to receive ivf, meclizine. [PB] ED Course User Index [PB] Raffi Fernandez MD Diagnosis/Impression as of 08/28/242317 Dizziness Procedures: Procedures MDM: Medical Decision Making 44 yo F presents with dizziness, chest pain. Heart score 2-3 points [address] pt in low risk group Amount and/or Complexity of Data Reviewed Labs: ordered. Radiology: ordered. Details: Ct head no acute intracranial hemorrhage, ct chest neg for dissection ECG/medicine tests: ordered. Details: NSR, no stemi, qtc 447 HR 88 Risk OTC drugs. Prescription drug management. Risk Details: PT understand need for close f/u. Offered admission for obs but pt prefers to hold off at this time. Flowsheet Documentation: Scoring Tools: No data recorded Disposition/Condition: ED Disposition None Discharge Medications: Patient's Medications START taking these medications No medications on file CONTINUE taking these medications which have NOT CHANGED CHLORHEXIDINE 0.12 % MOUTHWASH Swish and spit out 15 mL in the morning and 15 mL in the evening. PROMETHAZINE 25 MG TABLET Take 0.5 tablets by mouth every 6 (six) hours as needed for Nausea and Vomiting (N/V). START taking Modified Medications as Prescribed No medications on file STOP taking these medications No medications on file Follow-up: Electronically signed by: Raffi Fernandez MD 08/28/24 [id number] Raffi Fernandez MD 08/28/24 [id number] [facility]
[2025-01-23 19:42] LABS: Absolute Basophils 0.1 K/uL (0-0.5); Absolute Eosinophils 0.1 K/uL (0-0.5); Absolute Lymphocytes (CBC) 2.1 K/uL (0.7-4.9); Absolute Monocytes 0.8 K/uL (0.1-1.3); Absolute Neutrophil 11.5 K/uL (1.8-8.0); Basophils % 0.6 % (0-1.3); Eosinophils % 0.6 % (0-4.4); Hematocrit 40.3 % (36.0-45.0); Hemoglobin 14.1 g/dL (12.0-15.0); Lymphocytes % 14.4 % (15.3-44.8); MCH 30.7 pg (27.0-35.0); MCHC 34.9 g/dL (32.0-36.0); MCV 88.1 fL (80-100); MPV 9.4 fL (7.6-11.3); Monocytes % 5.3 % (3.3-12.3); Neutrophils % 79.1 % (41.7-73.7); Nucleated Red Blood Cells % 0.1 % (0-0); Platelets 329 thou/uL (152-406); RBC Red Blood Cell Count 4.58 M/uL (3.86-4.86); Red Cell Distribution Width 15.3 % (12.1-15.2)
[2025-01-23 20:01] LABS: Anion Gap 7.3 mEq/L (5.0-15.0); BUN Blood Urea Nitrogen 16 mg/dL (7-18); Bicarbonate 27 mEq/L (21-32); Glomerular Filtration Rate 100 ml/min (=/>90); Glucose Level 129 mg/dL (74-106); Potassium 4.3 mEq/L (3.5-5.1); Sodium Level 140 mEq/L (136-145)
[2025-01-23 20:02] LABS: HCG, Quantitative < 1 mIU/mL (1-3)
--- NOTE | 2025-01-23 20:08 | ER ---
Nurse's Notes [facility] Name: Katherin Chin Age: 44 yrs Sex: Female : 1980 Arrival Date: 01/23/2025 Time: 19:10 Bed DX5 Private MD: Diagnosis: Abnormal uterine and vaginal bleeding, unspecified Presentation: 01/23 19:18 Chief complaint: Patient states: positive test 2 months ago. started spotting lg3 1 week ago. lower abdominal cramping. Coronavirus screen: Client denies travel out of the [place] in the last 14 days. At this time, the client does not indicate any symptoms associated with coronavirus-19. Ebola Screen: No symptoms or risks identified at this time. Initial Sepsis Screen: Does the patient meet any 2 criteria? No. Patient's initial sepsis screen is negative. Does the patient have a suspected source of infection? No. Patient's initial sepsis screen is negative. Risk Assessment: Do you want to hurt yourself or someone else? Patient reports no desire to harm self or others. Onset of symptoms is unknown. 19:18 Method Of Arrival: EMS: [facility] lg3 19:18 Acuity: ELIDA 3 lg3 Triage Assessment: 19:20 General: Appears in no apparent distress. comfortable, Behavior is cooperative, lg3 anxious, fussy. Pain: Complains of pain in pelvis. EENT: No deficits noted. No signs and/or symptoms were reported regarding the EENT system. Neuro: No deficits noted. Fuentes Agitation-Sedation Scale (RASS): 0 - Alert and Calm Level of Consciousness is awake, alert, obeys commands, Oriented to person, place, time, situation. Cardiovascular: No deficits noted. Denies chest pain, shortness of breath, Capillary refill < 3 seconds Clubbing of nail beds is absent JVD is absent Patient's skin is warm and dry. Respiratory: No deficits noted. Airway is patent Respiratory effort is even, unlabored, Respiratory pattern is regular, symmetrical. GI: No deficits noted. Abdomen is round non-distended, Abd is soft and non tender X 4 quads. Reports lower abdominal pain, cramping. : Reports vaginal bleeding that is spotty. Derm: No deficits noted. No signs and/or symptoms reported regarding the dermatologic system. Skin is intact, is healthy with good turgor, Skin is dry, Skin is normal, Skin temperature is warm. Musculoskeletal: No deficits noted. No signs and/or symptoms reported regarding the musculoskeletal system. Circulation, motion, and sensation intact. Range of motion: intact in all extremities. 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 - Infectious Disease History:: Denies. - Social history:: Smoking status: Patient reports the use of cigarette tobacco products, smokes two packs cigarettes per day. Patient uses alcohol, only on a social basis. Patient/guardian denies using street drugs. Screenin:18 [facility] ED Fall Risk Assessment (Adult) History of falling in the last 3 months, lg3 including since admission No falls in past 3 months (0 pts) Confusion or Disorientation No (0 pts) Intoxicated or Sedated No (0 pts) Impaired Gait No (0 pts) Mobility Assist Device Used No (0 pt) Altered Elimination No (0 pt) Score/Fall Risk Level 0 - 2 = Low Risk Oriented to surroundings, Maintained a safe environment, Educated pt \T\ family on fall prevention, incl call for assistance when getting out of bed, Assessed \T\ reinforced patient's understanding of fall precautions. Abuse screen: Denies threats or abuse. Denies injuries from another. Nutritional screening: No deficits noted. Tuberculosis screening: No symptoms or risk factors identified. Assessment: 19:18 General: see triage assessment. lg3 20:28 Reassessment: Patient appears in no apparent distress at this time. No changes from lg3 previously documented assessment. Patient and/or family updated on plan of care and expected duration. Pain level reassessed. Patient is alert, oriented x 3, equal unlabored respirations, skin warm/dry/pink. Vital Signs: 19:18 BP 134 / 92; Pulse 107; Resp 17 S; Temp 98.6(O); Pulse Ox 97% on R/A; Weight 68.04 kg lg3 (R); Height 5 ft. 2 in. (R); 20:28 BP 127 / 88; Pulse 94; Resp 16 S; Pulse Ox 98% on R/A; lg3 19:18 Body Mass Index 27.44 (68.04 kg, 157.48 cm) lg3 ED Course: 19:16 Patient arrived in ED. kb 19:16 Vanessa Timmons FNP-C [facility]. kb 19:16 Gigi Mayes MD is Attending Physician. kb 19:18 Patient has correct armband on for positive identification. lg3 19:20 Triage completed. lg3 19:20 Arm band placed on right wrist. lg3 19:32 Ileana Vieyra, RN is Primary Nurse. lg3 19:39 Inserted saline lock: 20 gauge in left antecubital area, using aseptic technique. Blood af3 collected. Flushed with 10 mL NS. 20:28 No provider procedures requiring assistance completed. IV discontinued, intact, lg3 bleeding controlled, No redness/swelling at site. Pressure dressing applied. Administered Medications: No medications were administered Medication: 20:28 VIS not applicable for this client. lg3 Outcome: 20:08 Discharge ordered by . kb 20:28 Discharged to Law Enforcement lg3 20:28 Condition: stable 20:28 Discharge instructions given to patient, Instructed on discharge instructions, follow up and referral plans. Demonstrated understanding of instructions, follow-up care, 20:29 Patient left the ED. lg3 Signatures: Vanessa Timmons FNP-C FNP-Ileana Guidry, RN RN lg3 Gladis Macias af3
--- NOTE | 2025-01-23 20:08 | EDPHYS ---
Physician Documentation [facility] Name: Katherin Chin Age: 44 yrs Sex: Female : 1980 Arrival Date: 01/23/2025 Time: 19:10 Bed DX5 Private MD: ED Physician Gigi Mayes HPI: 01/23 19:18 This 44 yrs old Female presents to ER via Unassigned with complaints of vaginal kb bleeding. 19:18 Patient is a 44-year-old female who presents for vaginal bleeding and suprapubic kb cramping that started 6 days ago. States she had a positive test 2 months ago. Came in today because she was arrested and wants to make sure that everything looks okay before she is transferred to [facility].. 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 - Infectious Disease History:: Denies. - Social history:: Smoking status: Patient reports the use of cigarette tobacco products, smokes two packs cigarettes per day. Patient uses alcohol, only on a social basis. Patient/guardian denies using street drugs. ROS: 19:18 Constitutional: As per HPI kb Exam: 19:18 Constitutional: This is a well developed, well nourished patient who is awake, alert, kb and in no acute distress. Head/Face: Normocephalic, atraumatic. ENT: Moist Mucous membranes Cardiovascular: Regular rate Respiratory: Respirations even and unlabored. No increased work of breathing. Talking in full sentences Skin: Warm, dry with normal turgor. Normal color. MS/ Extremity: Pulses equal, no cyanosis. Neurovascular intact. Full, normal range of motion. Neuro: Awake and alert, GCS 15, oriented to person, place, time, and situation. 19:18 Abdomen/GI: Inspection: abdomen appears normal, Bowel sounds: normal, Palpation: soft, in all quadrants, mild abdominal tenderness, in the suprapubic area, Vital Signs: 19:18 BP 134 / 92; Pulse 107; Resp 17 S; Temp 98.6(O); Pulse Ox 97% on R/A; Weight 68.04 kg lg3 (R); Height 5 ft. 2 in. (R); 20:28 BP 127 / 88; Pulse 94; Resp 16 S; Pulse Ox 98% on R/A; lg3 19:18 Body Mass Index 27.44 (68.04 kg, 157.48 cm) lg3 MDM: 19:16 Medical Screening Exam initiated kb 20:05 Differential diagnosis: threatened Ab, complete Ab. Data reviewed: vital signs, nurses kb notes. Historians other than the Patient: EMS: [facility]. Counseling: I had a detailed discussion with the patient and/or guardian regarding the historical points, exam findings, and any diagnostic results supporting the discharge/admit diagnosis, lab results, the need for outpatient follow up, a family practitioner, to return to the emergency department if symptoms worsen or persist or if there are any questions or concerns that arise at home. 01/23 19:17 Order name: Abo/rh Typing kb 01/23 19:17 Order name: Basic Metabolic Panel; Complete Time: 20:04 kb 01/23 19:17 Order name: CBC with Diff; Complete Time: 19:48 kb 01/23 19:17 Order name: Quantitative Hcg; Complete Time: 20:04 kb 01/23 19:17 Order name: IV Saline Lock; Complete Time: 19:38 kb 01/23 19:17 Order name: Labs collected and sent; Complete Time: 19:39 kb 01/23 19:17 Order name: NPO; Complete Time: 20:28 kb Administered Medications: No medications were administered Disposition Summary: 01/23/25 20:08 Discharge Ordered Notes: Location: Home kb Condition: Stable kb Diagnosis - Abnormal uterine and vaginal bleeding, unspecified kb Followup: kb - With: Emergency Department - When: As needed - Reason: Worsening of condition Followup: kb - With: Private Physician - When: 2 - 3 days - Reason: Recheck today's complaints, Continuance of care, Re-evaluation by your physician Discharge Instructions: - Discharge Summary Sheet kb - Abnormal Uterine Bleeding, [id number] kb Forms: - Medication Reconciliation Form kb - Antibiotic Education kb - Prescription Opioid Use kb - Patient Portal Instructions kb - Leadership Thank You Letter kb Signatures: Dispatcher [employer] EDVanessa Nelson, ROSIE-C PIGMENT PROCESSOR-Ileana Guidry RN RN lg3 Corrections: (The following items were deleted from the chart) : 19:17 Transvaginal Ob+US.RAD.BRZ ordered. CANDACE MARIA
[2025-01-23 20:37] VITALS: BP 134/92; TEMP 98.6; O2SAT 97
== END 2025-01-23 20:29 | disposition home or self-care (01) ==
LOC: ER 19:10
DX: N93.9 Abnormal uterine and vaginal bleeding, unspecified (principal); F17.210 Nicotine dependence, cigarettes, uncomplicated
CPT/HCPCS: 36415; 80048; 84702; 85025; 86900; 86901